=== PATIENT | male | born 1955 | race Caucasian/White ===

== ENCOUNTER 2018-05-14 08:21 | Emergency (ER) | payer MEDICARE ==
[2018-05-14 08:27] VITALS: BP 174/73
--- NOTE | 2018-05-14 09:37 | ER Document Report ---
ED Medical Screen (RME) - General Chief Complaint: Neck Problem Stated Complaint: MASS IN NECK Time Seen by Provider: 05/14/18 09:24 Mode of Arrival: Ambulatory Information source: Patient, Relative TRAVEL OUTSIDE OF THE U.S. 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 Has been lost to follow-up as a result of change in insurance status. He presents with his today for concern of worsening functioning increasing swelling along the right side of his head and systemic weakness. - Related Data Allergies/Adverse Reactions: No Known Allergies Allergy (Unverified 05/14/18 08:22) Past Medical History - Social History Chew tobacco use (# tins/day): No Frequency of alcohol use: None Drug Abuse: None Renal/ Medical History: Denies: Hx Peritoneal Dialysis Physical Exam - Vital signs Vitals: Temp Pulse Resp BP Pulse Ox 97.4 F 69 20 174/73 H 99 05/14/18 08:25 05/14/18 08:25 05/14/18 08:25 05/14/18 08:25 05/14/18 08:25 Course - Re-evaluation Re-evalutation: 05/14/18 11:52 I performed a rapid medical screening examination on this patient, believe she will require some further investigation and evaluation will defer further testing or disposition determination to another provider. 63-year-old male with head neck cancer worsening swelling along the right side of the head, will obtain soft tissue head and neck for delineation of mass. We will plan for this patient undergo further investigation however for his underlying oncologic issues. - Vital Signs Vital signs: Temp Pulse Resp BP Pulse Ox 97.4 F 69 20 174/73 H 99 05/14/18 08:25 05/14/18 08:25 05/14/18 08:25 05/14/18 08:25 05/14/18 08:25
[2018-05-14 10:05] LABS: ABSOLUTE BASOPHILS # (AUTO) 0.1 10^3/uL (0.0-0.2); ABSOLUTE EOSINOPHILS # (AUTO) 0.5 10^3/uL (0.0-0.6); ABSOLUTE MONOCYTES (AUTO) 0.6 10^3/uL (0.1-1.4); ABSOLUTE NEUT (AUTO) 6.1 10^3/uL (1.7-8.2); BASOPHILS % (AUTO) 1.2 % (0-2); EOSINOPHILS % (AUTO) 6.4 % (0-6); HEMATOCRIT 38.5 % (37.9-51.0); HEMOGLOBIN 13.3 g/dL (13.5-17.0); MEAN CORPUSCULAR HEMOGLOBIN 33.6 pg (27.0-33.4); MEAN CORPUSCULAR HGB CONC 34.7 g/dL (32.0-36.0); MEAN CORPUSCULAR VOLUME 97 fl (80-97); MONOCYTES % (AUTO) 6.9 % (3-13); PLATELET COUNT 422 10^3/uL (150-450); RED BLOOD COUNT 3.97 10^6/uL (4.35-5.55); RED CELL DISTRIBUTION WIDTH 12.7 % (11.5-14.0); SEGMENTED NEUTROPHILS % (AUTO) 73.5 % (42-78); TOTAL CELLS COUNTED % (AUTO) 100 %; WHITE BLOOD COUNT 8.3 10^3/uL (4.0-10.5)
[2018-05-14 10:31] LABS: ALANINE AMINOTRANSFERASE 34 U/L (21-72); ALKALINE PHOSPHATASE 124 U/L (38-126); ANION GAP 11 (5-19); ASPARTATE AMINO TRANSFERASE 28 U/L (17-59); BILIRUBIN,DIRECT 0.2 mg/dL (0.0-0.4); BILIRUBIN,TOTAL 0.3 mg/dL (0.2-1.3); BLOOD UREA NITROGEN 14 mg/dL (7-20); CALCIUM 9.9 mg/dL (8.4-10.2); CARBON DIOXIDE 28 mmol/L (22-30); CHLORIDE 96 mmol/L (98-107); GLUCOSE 94 mg/dL (75-110); POTASSIUM 5.3 mmol/L (3.6-5.0); SODIUM 134.8 mmol/L (137-145); TOTAL PROTEIN 7.1 g/dL (6.3-8.2)
--- NOTE | 2018-05-14 10:36 | RADIOLOGY REPORT (SQ) ---
EXAM DESCRIPTION: CHEST 2 VIEWS COMPLETED DATE/TIME: 05/14/2018 10:23 am REASON FOR STUDY: dyspnea COMPARISON: None. EXAM PARAMETERS: NUMBER OF VIEWS: two views TECHNIQUE: Digital Frontal and Lateral radiographic views of the chest acquired. RADIATION DOSE: NA LIMITATIONS: none FINDINGS: LUNGS AND PLEURA: No opacities, masses or pneumothorax. No pleural effusion. MEDIASTINUM AND HILAR STRUCTURES: No masses or contour abnormalities. HEART AND VASCULAR STRUCTURES: Heart normal size. No evidence for failure. BONES: No acute findings. HARDWARE: Left-sided permanent central line tip superior vena cava. Tracheostomy tube tip in the upp er trachea. OTHER: No other significant finding. IMPRESSION: NO ACUTE RADIOGRAPHIC FINDING IN THE CHEST. TECHNICAL DOCUMENTATION: JOB ID: [id number] [employer]- All Rights Reserved Reading location - IP/workstation name: [email or web address]
--- NOTE | 2018-05-14 11:25 | RADIOLOGY REPORT (SQ) ---
EXAM DESCRIPTION: CT SOFT TISSUE NECK COMBO COMPLETED DATE/TIME: 05/14/2018 11:04 am REASON FOR STUDY: large neck mass growing COMPARISON: None. TECHNIQUE: Pre and Post IV contrasted scanning from skull base through lung apices with review of hermelinda ne, soft tissue and lung windows. Reconstructed coronal and sagittal MPR images reviewed. All image s stored on PACS. All CT scanners at this facility use dose modulation, iterative reconstruction, and/or weight based d osing when appropriate to reduce radiation dose to as low as reasonably achievable (ALARA). [facility]: Dose Right [facility]: CareDose [facility]: Dose Right [facility]: Teradose 4D [facility]: Basic6 CONTRAST TYPE AND DOSE: contrast/concentration: Isovue 350.00 mg/ml; Total Contrast Delivered: 75.0 ml; Total Saline Delivered: 55.0 ml RENAL FUNCTION: Creatinine 0.7 RADIATION DOSE: CT Rad equipment meets quality standard of care and radiation dose reduction techniq ues were employed. CTDIvol: 10.2 - 12.1 mGy. DLP: 793 mGy-cm. . LIMITATIONS: None. FINDINGS: SKULL BASE: Inferior brain parenchyma unremarkable MAJOR SALIVARY GLANDS: In the deep lobe right parotid gland, 5 x 5 cm mass is present worrisome for p rimary parotid tumor. This displaces the carotid vessels medially. LYMPHADENOPATHY: No adenopathy. MUCOSAL MASSES OR ASYMMETRY: No mucosal masses or asymmetry. LARYNX/CORDS: Post tracheostomy. Abnormal supraglottic larynx with effacement of the right piriform recess and thickening of the rightward epiglottis and aryepiglottic fold worrisome for tumor. VASCULAR STRUCTURES: Heavily calcified carotid bifurcations without flow significant stenosis LUNG APICES: Obstructive lung disease BONES: Diffuse degenerative changes throughout the cervical spine THYROID: Normal size, 1 cm cyst right midpole thyroid PARANASAL SINUSES: Old left maxillary sinus antral window with chronic left maxillary sinus mucoperio steal thickening. OTHER: Tracheostomy tube tip in the upper trachea. Left permanent central line tip superior vena cav a IMPRESSION: 5 x 5 cm mass deep lobe right parotid gland worrisome for primary parotid tumor Abnormal supraglottic larynx worrisome for pharyngeal cancer Tracheostomy tube tip in the upper trachea in good positioning. TECHNICAL DOCUMENTATION: JOB ID: [id number] Quality ID # [id number]: Final reports with documentation of one or more dose reduction techniques (e.g., Au tomated exposure control, adjustment of the mA and/or kV according to patient size, use of iterative reconstruction technique) 2010 [employer]- All Rights Reserved Reading location - IP/workstation name: [email or web address]
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
== END 2018-05-14 12:49 | disposition home or self-care (01) ==
LOC: ER 08:21
DX: R22.1 Localized swelling, mass and lump, neck (principal); R53.1 Weakness; F17.210 Nicotine dependence, cigarettes, uncomplicated; Z59.0 Homelessness
CPT/HCPCS: 36415; 70492; 71046; 80053; 85025; 99284

== ENCOUNTER 2018-08-25 05:10 | Emergency (ER) | payer MEDICARE ==
[2018-08-25] MEDS ORDERED: TRANEXAMIC ACID INJ/PF 1,000 MG/10 ML SDV IV ONE (05:22)
--- NOTE | 2018-08-25 05:25 | ER Document Report ---
ED Medical Screen (RME) - General Stated Complaint: NECK PAIN Time Seen by Provider: 08/25/18 05:21 Mode of Arrival: Medic Information source: Patient, Emergency Med Personnel, [facility] Records Notes: 63-year-old male with hypertension, COPD, laryngeal cancer presents via EMS with massive bleeding from the external surface of the mass on the right lateral aspect of his neck. Patient does report that it has been oozing clear fluid for several days but he awoke this morning in a pool of blood. He is not currently undergoing any cancer treatment. I have greeted and performed a rapid initial assessment of this patient. A comprehensive ED assessment and evaluation of the patient, analysis of test results and completion of medical decision making process we will be contacted by additional ED providers. PHYSICAL EXAMINATION: Vital signs reviewed GENERAL: Disheveled, covered in blood, large neck mass no active bleeding LUNGS: No respiratory distress Musculoskeletal: Normal range of motion NEUROLOGICAL: Normal speech, normal gait. PSYCH: Normal mood, normal affect. SKIN: Warm, Dry, normal turgor, no rashes or lesions noted. TRAVEL OUTSIDE OF THE U.S. IN LAST 30 DAYS: No - HPI Onset: Just prior to arrival Onset/Duration: Sudden Quality of pain: Pressure, Throbbing Severity: Moderate Associated Symptoms: Cough (productive). denies: Drooling Exacerbated by: Denies Relieved by: Denies Similar symptoms previously: Yes Recently seen / treated by doctor: No - Related Data Smoking: Cigarettes Frequency of alcohol use: None Drug Abuse: None Allergies/Adverse Reactions: No Known Allergies Allergy (Unverified 05/14/18 08:22) Past Medical History Renal/ Medical History: Denies: Hx Peritoneal Dialysis
[2018-08-25 05:47] LABS: ABSOLUTE BASOPHILS # (AUTO) 0.1 10^3/uL (0.0-0.2); ABSOLUTE EOSINOPHILS # (AUTO) 0.5 10^3/uL (0.0-0.6); ABSOLUTE LYMPHOCYTES (AUTO) 1.2 10^3/uL (0.5-4.7); ABSOLUTE MONOCYTES (AUTO) 0.6 10^3/uL (0.1-1.4); ABSOLUTE NEUT (AUTO) 6.5 10^3/uL (1.7-8.2); BASOPHILS % (AUTO) 1.2 % (0-2); HEMOGLOBIN 12.5 g/dL (13.5-17.0); LYMPHOCYTES % (AUTO) 13.3 % (13-45); MEAN CORPUSCULAR HEMOGLOBIN 33.6 pg (27.0-33.4); MEAN CORPUSCULAR HGB CONC 34.9 g/dL (32.0-36.0); MEAN CORPUSCULAR VOLUME 97 fl (80-97); MONOCYTES % (AUTO) 6.9 % (3-13); PLATELET COUNT 487 10^3/uL (150-450); RED BLOOD COUNT 3.73 10^6/uL (4.35-5.55); RED CELL DISTRIBUTION WIDTH 12.7 % (11.5-14.0); SEGMENTED NEUTROPHILS % (AUTO) 72.6 % (42-78); TOTAL CELLS COUNTED % (AUTO) 100 %; WHITE BLOOD COUNT 8.9 10^3/uL (4.0-10.5)
[2018-08-25 06:03] LABS: INTERNATIONAL RATION (INR) 0.92; PROTHROMBIN TIME 12.8 SEC (11.4-15.4)
--- NOTE | 2018-08-25 06:59 | ER Document Report ---
ED General - General Chief Complaint: Neck Problem Stated Complaint: NECK PAIN Time Seen by Provider: 08/25/18 05:21 Mode of Arrival: Medic Notes: 63-year-old's male presents the emergency department with complaints of bleeding from a mass on the right side of his neck. Patient states that he moved [place]. Patient states that he was diagnosed with cancer while in [place]. He had a trach PEG placed while in [place]. He had a week of continuous chemotherapy and was told he needed 30 radiation treatments. Patient did 5 of the radiation treatments and then moved to [place]. He is not returned to [place] for any further treatment. Patient states that he is homeless and does not have insurance. He was seen in the emergency department in May for the neck mass. He has a social service consulted and was referred to a primary care physician and Dr. Karl bond. Patient states that he is not followed up with anyone. TRAVEL OUTSIDE OF THE [place].S. IN LAST 30 DAYS: No - HPI Onset: Just prior to arrival Onset/Duration: Sudden Quality of pain: No pain Severity: None Pain Level: Denies Associated symptoms: None Exacerbated by: Denies Relieved by: Denies Similar symptoms previously: No Recently seen / treated by doctor: No - Related Data Allergies/Adverse Reactions: No Known Allergies Allergy (Verified 08/25/18 05:45) Past Medical History - General Information source: Patient, Emergency Med Personnel, [facility] Records - Social History Smoking Status: Current Every Day Smoker Frequency of alcohol use: None Drug Abuse: None Family History: Reviewed & Not Pertinent Renal/ Medical History: Denies: Hx Peritoneal Dialysis Review of Systems - Review of Systems Constitutional: See HPI EENT: Other - neck mass bleeding Cardiovascular: No symptoms reported Respiratory: No symptoms reported Gastrointestinal: No symptoms reported Genitourinary: No symptoms reported Male Genitourinary: No symptoms reported Musculoskeletal: No symptoms reported Skin: No symptoms reported Hematologic/Lymphatic: No symptoms reported Neurological/Psychological: No symptoms reported -: Yes All other systems reviewed and negative Physical Exam - Vital signs Vitals: Resp Pulse Ox 13 96 08/25/18 05:18 08/25/18 05:18 - Notes Notes: PHYSICAL EXAMINATION: GENERAL: Well-appearing, well-nourished and in no acute distress. HEAD: Atraumatic, normocephalic. EYES: Pupils equal round and reactive to light, extraocular movements intact, sclera anicteric, conjunctiva are normal. ENT: Nares patent, oropharynx clear without exudates. Moist mucous membranes. Trach in place. 7cm right sided hard neck mass. NECK: Normal range of motion, supple without lymphadenopathy LUNGS: Breath sounds clear to auscultation bilaterally and equal. No wheezes rales or rhonchi. HEART: Regular rate and rhythm without murmurs ABDOMEN: Soft, nontender, nondistended abdomen. No guarding, no rebound. No masses appreciated. Musculoskeletal: Normal range of motion, no pitting or edema. No cyanosis. NEUROLOGICAL: Cranial nerves grossly intact. Normal speech, normal gait. Normal sensory, motor exams PSYCH: Normal mood, normal affect. SKIN: Warm, Dry, normal turgor, no rashes or lesions noted. Course - Re-evaluation Re-evalutation: 08/25/18 09:43 Labs and imaging done. Hemoglobin is stable. Repeat CT of the neck was done. It shows progression of the R parotid tumor mass and a new left malignant adenopathy. I contacted social media marketing specialist to help the patient with insurance purposes. I spoke with Dr. Wall, the oncologist construction superintendent. She said she be more than happy to see him in the office regardless of insurance status. 08/25/18 13:20 print binding and finishing worker saw the patient. She contacted the patient's . She is going to arrange for a home health referral to help with trach care. She is also trying to set up transport to get the patient from his house to Dr. Wall's office. No further bleeding to the mass. I will discharge patient home. - Vital Signs Vital signs: Temp Pulse Resp BP Pulse Ox 18 171/89 H 100 08/25/18 12:14 08/25/18 12:14 08/25/18 12:14 - Laboratory Result Diagrams: 08/25/18 05:23 08/25/18 07:25 Laboratory results interpreted by me: 08/25/18 08/25/18 05:23 07:25 RBC 3.73 L Hgb 12.5 L Hct 36.0 L MCH 33.6 H Plt Count 487 H Sodium 132.8 L AST 14 L Total Protein 6.1 L Discharge - Discharge Clinical Impression: Parotid mass Condition: Stable Instructions: Growth or Mass, Pending Workup ([facility]) Additional Instructions: Follow-up with Dr. Landers this week. Contact the psychiatric social worker supervisor if you're having problems setting up transport to her office. Return to the emergency department for worsening bleeding, fever, chills, difficulty breathing. Referrals: JONAH WALL MD [ACTIVE STAFF] - Follow up as needed
[2018-08-25 07:58] LABS: ALBUMIN 3.6 g/dL (3.5-5.0); ALKALINE PHOSPHATASE 126 U/L (38-126); ANION GAP 10 (5-19); ASPARTATE AMINO TRANSFERASE 14 U/L (17-59); BILIRUBIN,DIRECT 0.3 mg/dL (0.0-0.4); BILIRUBIN,TOTAL 0.3 mg/dL (0.2-1.3); BLOOD UREA NITROGEN 16 mg/dL (7-20); CALCIUM 8.8 mg/dL (8.4-10.2); CARBON DIOXIDE 24 mmol/L (22-30); CHLORIDE 99 mmol/L (98-107); GLUCOSE 109 mg/dL (75-110); POTASSIUM 4.4 mmol/L (3.6-5.0); SODIUM 132.8 mmol/L (137-145); TOTAL PROTEIN 6.1 g/dL (6.3-8.2)
[2018-08-25 08:07] LABS: ALANINE AMINOTRANSFERASE 30 U/L (21-72)
--- NOTE | 2018-08-25 09:23 | RADIOLOGY REPORT (SQ) ---
EXAM DESCRIPTION: CT SOFT TISSUE NECK WITH COMPLETED DATE/TIME: 08/25/2018 8:59 am REASON FOR STUDY: neck mass COMPARISON: 05/14/2018 CT soft tissue neck TECHNIQUE: Post IV contrasted scanning from skull base through lung apices with review of bone, soft tissue and lung windows. Reconstructed coronal and sagittal MPR images reviewed. All images stored on PACS. All CT scanners at this facility use dose modulation, iterative reconstruction, and/or weight based d osing when appropriate to reduce radiation dose to as low as reasonably achievable (ALARA). [facility]: Dose Right [facility]: CareDose [facility]: Dose Right [facility]: Teradose 4D [facility]: [employer] CONTRAST TYPE AND DOSE: contrast/concentration: Isovue 350.00 mg/ml; Total Contrast Delivered: 75.0 ml; Total Saline Delivered: 45.0 ml RENAL FUNCTION: Creatinine 0.7 RADIATION DOSE: CT Rad equipment meets quality standard of care and radiation dose reduction techniq ues were employed. CTDIvol: 16.5 mGy. DLP: 545 mGy-cm. . LIMITATIONS: None. FINDINGS: SKULL BASE: Inferior brain parenchyma in the field of view unremarkable MAJOR SALIVARY GLANDS: A huge tumor mass replaces the right parotid gland, now 7 cm transverse by 7 c m AP x 10 cm craniocaudad (was 5 x 4.8 x 5.[address] soft tissue neck 05/14/2018). Along the of large right parotid tumor, there is now a tumor nodule extending along the deep lobe rig ht parotid into the right carotid space and parapharyngeal space. This nodule measures 2.4 cm transv erse by 2.3 cm AP x 2.7 cm craniocaudad, best shown on axial image 30 and coronal image 55. There is encasement of the right carotid bifurcation by tumor. Remainder of the major salivary glands are otherwise grossly unremarkable. LYMPHADENOPATHY: New malignant left jugulodigastric lymph node, 2.8 x 2 cm on axial image 46/115. Ne w left level 3 lymph node 1.8 x 1.2 cm on axial image 53/115. MUCOSAL MASSES OR ASYMMETRY: No mucosal masses or asymmetry. LARYNX/CORDS: Medial deviation of the left arytenoid cartilage, question left-sided vocal cord paraly sis VASCULAR STRUCTURES: The major vessels are patent. Heavily calcified carotid bifurcations without fl ow significant stenosis LUNG APICES: Clear. BONES: Degenerative disc changes cervical spine THYROID: Normal size. No masses. PARANASAL SINUSES: Clear. OTHER: Tracheostomy tube tip in the upper trachea, in good positioning. Left permanent central line tip superior vena cava. 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 New contralateral left neck malignant adenopathy Suspect left vocal cord paralysis TECHNICAL DOCUMENTATION: JOB ID: [id number] Quality ID # [id number]: Final reports with documentation of one or more dose reduction techniques (e.g., Au tomated exposure control, adjustment of the mA and/or kV according to patient size, use of iterative reconstruction technique) 2010 [employer]- All Rights Reserved Reading location - IP/workstation name: [email or web address]
[2018-08-25] MEDS ORDERED: CLONIDINE HCL 0.1 MG TABLET PO ONE (12:21)
[2018-08-25] MEDS ORDERED: ACETAMINOPHEN 325 MG TABLET PO ONE (12:21)
[2018-08-25 14:23] VITALS: BP 159/86
== END 2018-08-25 14:35 | disposition home or self-care (01) ==
LOC: ER 05:10
DX: D11.0 Benign neoplasm of parotid gland (principal); M54.2 Cervicalgia; F17.200 Nicotine dependence, unspecified, uncomplicated
CPT/HCPCS: 99284; 96374; 86900; 86901; 36415; 86850; 85025; 85610; 80053; 70491; A9270 ×2; J3490

== ENCOUNTER 2018-08-29 19:58 | Emergency (ER) | payer MEDICARE ==
[2018-08-29] MEDS ORDERED: LIDOCAINE 4%/TETRACAINE 0.5%/EPI 0.18% 5 ML TOPICAL SOLN TOP ONE (20:37)
[2018-08-29 20:53] LABS: ABSOLUTE BASOPHILS # (AUTO) 0.1 10^3/uL (0.0-0.2); ABSOLUTE EOSINOPHILS # (AUTO) 0.3 10^3/uL (0.0-0.6); ABSOLUTE LYMPHOCYTES (AUTO) 1.3 10^3/uL (0.5-4.7); ABSOLUTE MONOCYTES (AUTO) 0.5 10^3/uL (0.1-1.4); ABSOLUTE NEUT (AUTO) 5.2 10^3/uL (1.7-8.2); BASOPHILS % (AUTO) 1.1 % (0-2); EOSINOPHILS % (AUTO) 4.2 % (0-6); HEMATOCRIT 33.6 % (37.9-51.0); HEMOGLOBIN 11.8 g/dL (13.5-17.0); LYMPHOCYTES % (AUTO) 17.1 % (13-45); MEAN CORPUSCULAR HEMOGLOBIN 33.8 pg (27.0-33.4); MEAN CORPUSCULAR HGB CONC 35.1 g/dL (32.0-36.0); MEAN CORPUSCULAR VOLUME 96 fl (80-97); MONOCYTES % (AUTO) 7.3 % (3-13); PLATELET COUNT 525 10^3/uL (150-450); RED BLOOD COUNT 3.49 10^6/uL (4.35-5.55); RED CELL DISTRIBUTION WIDTH 12.7 % (11.5-14.0); SEGMENTED NEUTROPHILS % (AUTO) 70.3 % (42-78); TOTAL CELLS COUNTED % (AUTO) 100 %; WHITE BLOOD COUNT 7.4 10^3/uL (4.0-10.5)
[2018-08-29 21:06] LABS: ALANINE AMINOTRANSFERASE 14 U/L (21-72); ALBUMIN 4.4 g/dL (3.5-5.0); ALKALINE PHOSPHATASE 159 U/L (38-126); ANION GAP 11 (5-19); ASPARTATE AMINO TRANSFERASE 17 U/L (17-59); BILIRUBIN,DIRECT 0.5 mg/dL (0.0-0.4); BILIRUBIN,TOTAL 0.5 mg/dL (0.2-1.3); BLOOD UREA NITROGEN 19 mg/dL (7-20); CALCIUM 9.7 mg/dL (8.4-10.2); CARBON DIOXIDE 27 mmol/L (22-30); CHLORIDE 90 mmol/L (98-107); GLUCOSE 99 mg/dL (75-110); INTERNATIONAL RATION (INR) 0.92; POTASSIUM 4.9 mmol/L (3.6-5.0); PROTHROMBIN TIME 12.8 SEC (11.4-15.4); TOTAL PROTEIN 7.2 g/dL (6.3-8.2)
[2018-08-29] MEDS ORDERED: ACETAMINOPHEN 325 MG TABLET PO ONE (21:39)
--- NOTE | 2018-08-29 22:42 | ER Document Report ---
ED General - General Chief Complaint: Other Stated Complaint: TUMOR BLEEDING Time Seen by Provider: 08/29/18 20:37 Primary Care Provider: [facility] [Outside] - Follow up in 3-5 days TRAVEL OUTSIDE OF THE U.S. IN LAST 30 DAYS: No - HPI Patient complains to provider of: Bleeding Onset: Other - 63-year-old man with head and neck cancer who presents for a bleeding tumor out of the side of his neck. Notes that this is happened once before. Nothing is made it better or worse. Previously it stopped on its own with some gentle pressure. Does not take any blood thinning medications has not seen anybody for this since moving here from [place]. - Related Data Allergies/Adverse Reactions: No Known Allergies Allergy (Verified 08/25/18 05:45) Past Medical History - General Information source: Patient - Social History Smoking Status: Current Every Day Smoker Smoking Education Provided: Yes Family History: Reviewed & Not Pertinent Renal/ Medical History: Denies: Hx Peritoneal Dialysis Review of Systems - Review of Systems -: Yes All other systems reviewed and negative Physical Exam - Vital signs Vitals: Temp 97.8 F 08/29/18 19:59 - General General appearance: Alert In distress: Mild - HEENT Head: Normocephalic Eyes: Normal Conjunctiva: Normal Cornea: Normal Extraocular movements intact: Yes Eyelashes: Normal Neck: Other - There is marked swelling over the lateral aspect just inferior to the angle of the mandible with an erythematous taut lesion which is ulcerated and actively oozing bright red blood in a nonpulsatile fashion - Respiratory Respiratory status: No respiratory distress Chest status: Nontender Breath sounds: Normal Chest palpation: Normal - Cardiovascular Rhythm: Regular Heart sounds: Normal auscultation Murmur: No - Abdominal Inspection: Normal Distension: No distension Bowel sounds: Normal Tenderness: Nontender Organomegaly: No organomegaly - Back Back: Normal, Nontender - Extremities General upper extremity: Normal inspection, Nontender, Normal color, Normal ROM, Normal temperature General lower extremity: Normal inspection, Nontender, Normal color, Normal ROM, Normal temperature, Normal weight bearing. No: Roel's sign - Neurological Neuro grossly intact: Yes Cognition: Normal Orientation: AAOx4 [place] Coma Scale Eye Opening: Spontaneous [place] Coma Scale Verbal: Oriented [place] Coma Scale Motor: Obeys Commands Isabella Coma Scale Total: 15 Speech: Normal Motor strength normal: LUE, RUE, LLE, RLE Sensory: Normal - Psychological Associated symptoms: Normal affect, Normal mood Course - Re-evaluation Re-evalutation: 08/30/18 01:22 This 63-year-old man with a history of head and neck cancer presents for bleeding from a tumor on his neck. Upon removal of the dressing there is an obvious ulcerated area which is actively bleeding. Current plan is to apply pressure to this spot directly. Following direct pressure for approximately 5 minutes bleeding was stopped. This patient blood for several hours prior to my evaluation of him as such we will obtain a CBC and CMP just in case this patient needs transfusions. While awaiting this result patient did not have any return of bleeding. His CBC was stable. He remained well-appearing his tracheostomy was patent he did not have any issues otherwise. - Vital Signs Vital signs: Temp Pulse Resp BP Pulse Ox 97.4 F 17 140/69 H 98 08/30/18 00:00 08/30/18 00:01 08/30/18 00:00 08/30/18 00:01 - Laboratory Result Diagrams: 08/29/18 20:15 08/29/18 20:15 Laboratory results interpreted by me: 08/29/18 08/29/18 20:15 20:15 RBC 3.49 L Hgb 11.8 L Hct 33.6 L MCH 33.8 H Plt Count 525 H Sodium 128.0 L Chloride 90 L Direct Bilirubin 0.5 H ALT 14 L Alkaline Phosphatase 159 H Discharge - Discharge Clinical Impression: Bleeding, Neck mass Condition: Good Disposition: HOME, SELF-CARE Additional Instructions: You were seen today in the emergency department from the bleeding from your neck wound. You had an evaluation including blood tests and a physical exam. If you have a return of bleeding he should place a gauze over top of the area and place 1 finger over the area where there is bleeding. You need to schedule appointment with a physician this week so that they can arminda ck this wound. Keep this wound covered with a bandage, change the bandage daily at least. Return in case of worsening bleeding or inability to stop the bleeding. Forms: Smoking Cessation Education Referrals: [facility] [Outside] - Follow up in 3-5 days
[2018-08-30 00:23] VITALS: BP 140/69
== END 2018-08-30 00:15 | disposition home or self-care (01) ==
LOC: ER 19:58
DX: R58 Hemorrhage, not elsewhere classified (principal); C76.0 Malignant neoplasm of head, face and neck; C79.89 Secondary malignant neoplasm of other specified sites; F17.200 Nicotine dependence, unspecified, uncomplicated
CPT/HCPCS: 99283; 86900; 86901; 36415; 86850; 85025; 85610; 80053; A9270; J3490

== ENCOUNTER → 2018-09-05 | Outpatient (CLI) | payer MEDICARE ==
--- NOTE | 2018-09-05 11:47 | RADIOLOGY REPORT (SQ) ---
EXAM DESCRIPTION: CT CHEST WITH COMPLETED DATE/TIME: 09/05/2018 11:25 am REASON FOR STUDY: MALIGNANT NEOPLASM OF HEAD, FACE AND NECK (C76.0) C76.0 MALIGNANT NEOPLASM OF HEA D, FACE AND NECK COMPARISON: Chest x-ray dated 05/14/2018 TECHNIQUE: CT scan of the chest performed using helical scanning technique with dynamic intravenous contrast injection. Images reviewed with lung, soft tissue and bone windows. Reconstructed coronal and sagittal MPR and MIP images reviewed. All images stored on PACS. All CT scanners at this facility use dose modulation, iterative reconstruction, and/or weight based d osing when appropriate to reduce radiation dose to as low as reasonably achievable (ALARA). [facility]: Dose Right [facility]: CareDose [facility]: Dose Right [facility]: Teradose 4D [facility]: [employer] CONTRAST TYPE AND DOSE: contrast/concentration: Isovue 350.00 mg/ml; Total Contrast Delivered: 80.0 ml; Total Saline Delivered: 49.0 ml RENAL FUNCTION: BUN 19, creatinine 0.89 RADIATION DOSE: CT Rad equipment meets quality standard of care and radiation dose reduction techniq ues were employed. CTDIvol: 5.8 mGy. DLP: 253 mGy-cm. . LIMITATIONS: None. FINDINGS: LUNGS AND PLEURA: Tracheostomy tube is in place. Mild bilateral emphysematous changes wit h simplification of the lung architecture. There are bilateral pulmonary nodules consistent with met astatic disease. The largest is in the right upper lobe and measures 1.4 cm. HILAR AND MEDIASTINAL STRUCTURES: No identified masses or abnormal nodes. HEART AND VASCULAR STRUCTURES: No aneurysm or dissection. No central pulmonary emboli. No pericardi al effusion. HARDWARE: None in the chest. UPPER ABDOMEN: No significant findings. Limited exam. THYROID AND OTHER SOFT TISSUES: No masses. No adenopathy. BONES: No significant finding. OTHER: No other significant finding. IMPRESSION: Multiple bilateral pulmonary nodules consistent with metastatic disease. The largest is in the right upper lobe and measures 1.4 cm. TECHNICAL DOCUMENTATION: JOB ID: [id number] Quality ID # [id number]: Final reports with documentation of one or more dose reduction techniques (e.g., Au tomated exposure control, adjustment of the mA and/or kV according to patient size, use of iterative reconstruction technique) 2010 [email or web address]- All Rights Reserved Reading location - IP[facility]workstation name: [email or web address]
== END ==
LOC: RAD 10:29
PROVIDERS: ATTEND Internal Medicine Hematology & Oncology
DX: C76.0 Malignant neoplasm of head, face and neck (principal)
CPT/HCPCS: 71260

== ENCOUNTER 2018-09-12 09:50 | Emergency (ER) | payer MEDICARE ==
[2018-09-12] MEDS ORDERED: LIDOCAINE 1%/EPINEPHRINE INJ 20 ML VIAL ONE (09:55)
--- NOTE | 2018-09-12 10:14 | ER Document Report ---
ED General - General Stated Complaint: BLEEDING ABSCESS Time Seen by Provider: 09/12/18 10:09 Primary Care Provider: JONAH LARES MD [Primary Care Provider] - Follow up as needed TRAVEL OUTSIDE OF THE U.S. IN LAST 30 DAYS: No - HPI Notes: Patient is a 63-year-old male that presents to the emergency department for chief complaint of bleeding tumor. Patient has a malignant right neck tumor and was in the hospital establishing with radiation oncology. When the oncologist took off his dressing the tumor began to bleed. Rapid response team was called and patient was transferred to the emergency room. Patient denies any other symptoms. He states he has bleeding from the area not infrequently. He did not have any reading that who is aware of this morning until the dressing was taken off. He had previously had care in [place] and just recently moved to the area. He has not established with oncology or primary care. He denies having any radiation to this area today. He denies any history of chemotherapy in the past. Patient does have a tracheostomy tube and states that he has been breathing normally. He denies any bleeding from the tracheostomy site. Past Medical History: Malignant neck tumor Past Surgical History: Tracheostomy Social History: Reviewed in chart Family History: Reviewed and noncontributory for presenting illness Allergies: Reviewed, see documented allergy list. REVIEW OF SYSTEMS: CONSTITUTIONAL : No fever No chills No diaphoresis No recent illness EENT: No vision changes No congestion No sore throat CARDIOVASCULAR: No chest pain No palpitations RESPIRATORY: No shortness of breath No cough No difficulty breathing GASTROINTESTINAL: No abdominal pain No nausea No vomiting No diarrhea GENITOURINARY: No dysuria No hematuria No difficulty urinating MUSCULOSKELETAL: No back pain No leg pain No arm pain SKIN: No rashes Bleeding from tumor LYMPHATIC: No swollen, enlarged glands. NEUROLOGICAL: No lightheadedness No headache No weakness No paresthesias PSYCHIATRIC: No anxiety No depression PHYSICAL EXAMINATION: Vital signs reviewed, nursing noted reviewed. GENERAL: Well-appearing, well-nourished and in no acute distress. HEAD: Atraumatic, normocephalic. EYES: Eyes appear normal, extraocular movements intact, sclera anicteric, conjunctiva are normal. ENT: nares patent, oropharynx clear without exudates. Moist mucous membranes. NECK: Tracheostomy clean, dry and intact with no active bleeding, large right lateral neck mass with superficial vessel pulsatile hemorrhage. LUNGS: Breath sounds clear to auscultation bilaterally and equal. No wheezes rales or rhonchi. HEART: Regular rate and rhythm without murmurs ABDOMEN: Soft, nontender, normoactive bowel sounds. No rebound, guarding, or rigidity. No masses appreciated. EXTREMITIES: Nontender, good range of motion, no pitting or edema. NEUROLOGICAL: No focal neurological deficits. Moves all extremities spontaneously Motor and sensory grossly intact on exam. PSYCH: Normal mood, normal affect. SKIN: Warm, Dry, normal turgor, right lateral neck mass with excoriations and active bleeding - Related Data Allergies/Adverse Reactions: No Known Allergies Allergy (Verified 08/25/18 05:45) Past Medical History - Social History Smoking Status: Unknown if Ever Smoked Family History: Reviewed & Not Pertinent - Past Medical History Cardiac Medical History: Reports: Hx Hypertension Renal/ Medical History: Denies: Hx Peritoneal Dialysis Past Surgical History: Reports: Hx Abdominal Surgery Course - Re-evaluation Re-evalutation: 09/12/18 10:11 Vitals reviewed. Nursing notes reviewed. Patient is a large excoriated mass on the left side of his neck. There is a small superficial vessel with pulsatile bleeding. The bleeding was controlled using pursestring suturing and cauterization. Surgifoam was placed over the area because of the excoriations to prevent any further bleeding. Patient is otherwise asymptomatic. His vital signs are stable. He will be discharged back to radiation oncology for further management. Procedures - Laceration/Wound Repair Right Neck Time completed: 10:12 Wound length (cm): 5.0 Wound's Depth, Shape: Other - Superficial vessel Anesthetic type: 1% Lidocaine w/epi Volume Anesthetic (mLs): 2 Wound Repaired With: Sutures Number of Sutures: 1 Notes: 09/12/18 10:13 Right lateral neck mass with superficial vascular bleeding. Area anesthetized using 2 mL of local infiltration of lidocaine with epinephrine with no hemostasis. Good anesthesia was achieved. Direct cauterization used with electrocautery pen with no hemostasis. 4-[address] single pursestring suture, this did achieve hemostasis. Surgifoam placed with bulky dressing over top. Patient tolerated well with no immediate complications Discharge - Discharge Clinical Impression: Bleeding from wound Condition: Stable Disposition: HOME, SELF-CARE Additional Instructions: Remove the dressing and have the stitch removed in 2-3 days by primary care doctor or oncology. Return to the emergency room for any repeat bleeding that is not controlled by holding direct pressure on the wound Referrals: JONAH LARES MD [Primary Care Provider] - Follow up as needed
[2018-09-12 11:23] VITALS: BP 144/76
== END 2018-09-12 10:35 | disposition home or self-care (01) ==
LOC: ER 09:50
DX: S10.91XA Abrasion of unspecified part of neck, initial encounter (principal); X58.XXXA Exposure to other specified factors, initial encounter; C76.0 Malignant neoplasm of head, face and neck; I10 Essential (primary) hypertension; Z93.0 Tracheostomy status
CPT/HCPCS: 99283; 12002; J3490

== ENCOUNTER 2018-09-15 14:52 | Emergency (ER) | payer MEDICARE ==
[2018-09-15] MEDS ORDERED: LIDOCAINE 1%/EPINEPHRINE INJ 20 ML VIAL INJ ONE (15:27)
--- NOTE | 2018-09-15 15:38 | ER Document Report ---
ED General - General Chief Complaint: Other Stated Complaint: POSIBLE HEMORRHAGE Time Seen by Provider: 09/15/18 15:11 TRAVEL OUTSIDE OF THE U.S. IN LAST 30 DAYS: No - HPI Notes: Patient is a 63-year-old male that presents to the emergency department for chief complaint of bleeding neck mass. Patient has a large mass on the right side of his neck that has been having intermittent hemorrhaging. He was seen in the emergency room last week and had a suture placed by myself. Patient states he is not sure if anyone removed to the suture. He had some bleeding in the area last night and EMS was able to get hemostasis at his house. Patient called EMS again today because he was unable to get the bleeding stopped. Patient is a very poor historian. He has seen radiation oncology on Saturday. He states he has an appointment with someone coming up regarding his neck mass but he is not sure who or what specialty. There is no family present this time to provide further information. Past Medical History: Right neck mass Past Surgical History: Reviewed in chart Social History: Reviewed in chart Family History: Reviewed and noncontributory for presenting illness Allergies: Reviewed, see documented allergy list. REVIEW OF SYSTEMS: CONSTITUTIONAL : No fever No chills No diaphoresis No recent illness EENT: No vision changes No congestion No sore throat CARDIOVASCULAR: No chest pain No palpitations RESPIRATORY: No shortness of breath No cough No difficulty breathing GASTROINTESTINAL: No abdominal pain No nausea No vomiting No diarrhea GENITOURINARY: No dysuria No hematuria No difficulty urinating MUSCULOSKELETAL: No back pain No leg pain No arm pain SKIN: No rashes bleeding neck tumor LYMPHATIC: No swollen, enlarged glands. NEUROLOGICAL: No lightheadedness No headache No weakness No paresthesias PSYCHIATRIC: No anxiety No depression PHYSICAL EXAMINATION: Vital signs reviewed, nursing noted reviewed. GENERAL: Well-appearing, well-nourished and in no acute distress. HEAD: Atraumatic, normocephalic. EYES: Eyes appear normal, extraocular movements intact, sclera anicteric, conjunctiva are normal. ENT: nares patent, oropharynx clear without exudates. Moist mucous membranes. NECK: Tracheostomy clean, dry, intact normal range of motion, supple without lymphadenopathy LUNGS: Breath sounds mild end expiratory wheezing to auscultation bilaterally and equal. HEART: Regular rate and rhythm without murmurs ABDOMEN: Soft, nontender, normoactive bowel sounds. No rebound, guarding, or rigidity. No masses appreciated. EXTREMITIES: Nontender, good range of motion, no pitting or edema. NEUROLOGICAL: No focal neurological deficits. Moves all extremities spontaneously Motor and sensory grossly intact on exam. PSYCH: Normal mood, normal affect. SKIN: Warm, Dry, normal turgor. Excoriated and ulcerating right lateral neck mass with a small superficial vessel bleed that is nonpulsatile. - Related Data Allergies/Adverse Reactions: No Known Allergies Allergy (Verified 08/25/18 05:45) Past Medical History - Social History Smoking Status: Current Every Day Smoker Family History: Reviewed & Not Pertinent - Past Medical History Cardiac Medical History: Reports: Hx Hypertension Renal/ Medical History: Denies: Hx Peritoneal Dialysis Past Surgical History: Reports: Hx Abdominal Surgery Physical Exam - Vital signs Vitals: Resp 15 09/15/18 15:07 Course - Re-evaluation Re-evalutation: 09/15/18 15:51 Vitals reviewed. Nursing notes reviewed. Patient is a very poor historian however he is oriented. He is in no acute distress. He does have a small superficial vessel that is different from the area that was sutured on Saturday. There is no suture present in his neck mass. Patient was not sure who his doctors were. He stated he had an appointment with somebody on Saturday. I discussed his care with Dr. Floyd, ENT regarding patient's mass. He states patient would likely need head and neck surgery at 1 of the larger tertiary centers and this was not a mass he would necessarily manage however he would need more information which I cannot provide because of patient's inability to provide a history. I then discussed his care with Dr. Wall who has seen the patient in the past and states she is the one he has an appointment with on 09/17/18. She states she had recommended radiation oncology but was unsure of the recommendations. She believes radiation will likely improve his recurrent bleeding. Patient had told her that he did not wish to become aggressive with therapy and that the radiation was more of a palliative treatment. 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 Lab work will be obtained today for evaluate for anemia, thrombocytopenia and clotting disorder because of his recurrence of bleeding over the past few days. 09/15/18 16:21 Suture placed in bleeding superficial vessel with good hemostasis achieved, see procedure note. 09/15/18 16:26 Patient's lab work shows anemia at 9.7. He has normal platelet count. Patient has a normal PT and INR with only slight elevation of PTT. He has no bleeding currently. Patient is otherwise hemodynamically stable and not requiring blood transfusion. Lab testing also shows hyponatremia at 128 which is likely chronic in nature for him. Chart review shows his last sodium on record was 128 as well last year. He was advised to get his sodium and hemoglobin rechecked in the next few days. He has an appointment with oncology in 2 days which he will keep. Patient will return for any continued bleeding of his mass or new concerning symptoms. He is stable at discharge. Laboratory 09/15/18 09/15/18 09/15/18 15:00 15:00 15:00 WBC 7.0 RBC 2.95 L Hgb 9.7 L Hct 28.0 L MCV 95 MCH 33.0 MCHC 34.8 RDW 12.4 Plt Count 423 Seg Neutrophils % 74.3 Lymphocytes % 12.2 L Monocytes % 8.2 Eosinophils % 4.3 Basophils % 1.0 Absolute Neutrophils 5.2 Absolute Lymphocytes 0.9 Absolute Monocytes 0.6 Absolute Eosinophils 0.3 Absolute Basophils 0.1 PT 13.0 INR 0.94 APTT 36.3 H Sodium 128.6 L Potassium 4.7 Chloride 92 L Carbon Dioxide 28 Anion Gap 9 BUN 13 Creatinine 0.64 Est GFR ( Amer) > 60 Est GFR (Non-Af Amer) > 60 Glucose 109 Calcium 9.1 - Vital Signs Vital signs: Temp Pulse Resp BP Pulse Ox 97.8 F 62 18 100 09/15/18 15:24 09/15/18 15:24 09/15/18 15:24 09/15/18 15:24 - Laboratory Result Diagrams: 09/15/18 15:00 09/15/18 15:00 Laboratory results interpreted by me: 09/15/18 09/15/18 09/15/18 15:00 15:00 15:00 RBC 2.95 L Hgb 9.7 L Hct 28.0 L Lymphocytes % 12.2 L APTT 36.3 H Sodium 128.6 L Chloride 92 L Procedures - Laceration/Wound Repair Neck Time completed: 16:19 Wound length (cm): 0.5 Wound's Depth, Shape: Other - Superficial bleeding vessel with excoriated tissue surrounding Anesthetic type: 1% Lidocaine w/epi Volume Anesthetic (mLs): 2 Wound Repaired With: Sutures Suture Size/Type: 5:0, Vicryl Number of Sutures: 1 - Figure 8 stitch Notes: 09/15/18 16:20 2 mL lidocaine with epinephrine local infiltration of her superficial bleeding vessel on right lateral neck mass. Good anesthesia achieved and some hemostasis achieved with epinephrine. 5-0 Vicryl [id number] stitch placed with complete resolution of superficial vessel bleeding. Surrounding friable tissue bleeding continued and Surgifoam was placed with compressive dressing for complete hemostasis. Patient tolerated well with no immediate complications Discharge - Discharge Clinical Impression: Bleeding from wound, Hyponatremia Anemia Qualifiers: Anemia type: unspecified type Qualified Code(s): D64.9 - Anemia, unspecified Condition: Stable Disposition: HOME, SELF-CARE Instructions: Dressing Instructions for Open Wounds ([facility]), Hyponatremia ([facility]), Anemia ([facility]) Additional Instructions: Please return to the emergency department if you have any worsening, or concern of your symptoms. Please return to the emergency department if you develop chest pain, difficulty breathing, severe abdominal pain, or ongoing vomiting. Please follow-up with your primary care physician in 2-3 days and any other recommended physicians. If prescribed, take all medications as directed. If you have any questions or concerns do not hesitate to return the emergency department for evaluation. Your hemoglobin today was 9.7, this is low and if you continue to have bleeding from your neck mass you may require blood transfusion in the future. You do not require blood transfusion today. You need to have your hemoglobin rechecked in the next few days. Return to the emergency room if you have any continued bleeding of the mass on the right side of her neck. your sodium today was low. It has been low on previous testing at this hospital but should be rechecked in the next few days as an outpatient. Keep your appointment on 09/17/[address] Wall Referrals: JONAH WALL MD [ACTIVE STAFF] - Follow up in 3-5 days
[2018-09-15 15:57] LABS: ABSOLUTE BASOPHILS # (AUTO) 0.1 10^3/uL (0.0-0.2); ABSOLUTE EOSINOPHILS # (AUTO) 0.3 10^3/uL (0.0-0.6); ABSOLUTE LYMPHOCYTES (AUTO) 0.9 10^3/uL (0.5-4.7); ABSOLUTE MONOCYTES (AUTO) 0.6 10^3/uL (0.1-1.4); ABSOLUTE NEUT (AUTO) 5.2 10^3/uL (1.7-8.2); EOSINOPHILS % (AUTO) 4.3 % (0-6); HEMOGLOBIN 9.7 g/dL (13.5-17.0); LYMPHOCYTES % (AUTO) 12.2 % (13-45); MEAN CORPUSCULAR HGB CONC 34.8 g/dL (32.0-36.0); MEAN CORPUSCULAR VOLUME 95 fl (80-97); MONOCYTES % (AUTO) 8.2 % (3-13); PLATELET COUNT 423 10^3/uL (150-450); RED BLOOD COUNT 2.95 10^6/uL (4.35-5.55); RED CELL DISTRIBUTION WIDTH 12.4 % (11.5-14.0); SEGMENTED NEUTROPHILS % (AUTO) 74.3 % (42-78); TOTAL CELLS COUNTED % (AUTO) 100 %
[2018-09-15 15:59] LABS: INTERNATIONAL RATION (INR) 0.94
[2018-09-15 16:00] LABS: PARTIAL THROMBOPLASTIN TIME 36.3 SEC (23.5-35.8)
[2018-09-15 16:05] LABS: ANION GAP 9 (5-19); BLOOD UREA NITROGEN 13 mg/dL (7-20); CALCIUM 9.1 mg/dL (8.4-10.2); CARBON DIOXIDE 28 mmol/L (22-30); CHLORIDE 92 mmol/L (98-107); GLUCOSE 109 mg/dL (75-110); POTASSIUM 4.7 mmol/L (3.6-5.0); SODIUM 128.6 mmol/L (137-145)
[2018-09-15 17:13] VITALS: BP 165/93
== END 2018-09-15 17:14 | disposition home or self-care (01) ==
LOC: ER 14:52
PROC: 0HQ4XZZ Repair Neck Skin, External Approach (ICD-10-PCS; principal; 2018-09-15)
DX: R58 Hemorrhage, not elsewhere classified (principal); R22.1 Localized swelling, mass and lump, neck; E87.1 Hypo-osmolality and hyponatremia; D64.9 Anemia, unspecified; Z79.899 Other long term (current) drug therapy; F17.200 Nicotine dependence, unspecified, uncomplicated; I10 Essential (primary) hypertension
CPT/HCPCS: 12001; 99283; 36415; 85025; 85610; 85730; 80048; J3490

== ENCOUNTER 2018-09-30 08:35 | Outpatient (CLI) | payer MEDICARE ==
[~2018-09-30 08:35] MED LIST: CETUXIMAB IV PRN; CONTAINER EMPTY IV PRN; DIPHENHYDRAMINE HCL 50 MG in NORMAL SALINE 50 ML IV PRN; NORMAL SALINE 250 ML IV PRN
[2018-09-30 12:33] VITALS: BP 110/60
== END 2018-09-30 12:33 | disposition home or self-care (01) ==
LOC: II 08:35 → 5TH 08:39 → II 12:33
PROVIDERS: ATTEND Internal Medicine Hematology & Oncology
PROC: 3E0430M Introduction of Antineoplastic, Monoclonal Antibody, into Central Vein, Percutaneous Approach (ICD-10-PCS; principal; 2018-09-30)
PROC: 3E043GC Introduction of Other Therapeutic Substance into Central Vein, Percutaneous Approach (ICD-10-PCS; 2018-09-30)
DX: Z51.11 Encounter for antineoplastic chemotherapy (principal); C76.0 Malignant neoplasm of head, face and neck
CPT/HCPCS: 96413; 96415; 96367; 96374; J1200; A9270; J9055; J3490

== ENCOUNTER 2018-10-01 01:18 | Inpatient (IN) | payer MEDICARE ==
[2018-10-01] MEDS ORDERED: LORAZEPAM INJ 2 MG/1 ML VIAL IV ONE ×2 (02:03→03:14)
--- NOTE | 2018-10-01 02:03 | ER Document Report ---
ED General - General Stated Complaint: ALTERED MENTAL STATUS Time Seen by Provider: 10/01/18 01:56 Notes: 63-year-old male to the emergency department for altered mental status. Patient has metastatic neck cancer. Currently being treated by oncology. Had chemo yesterday, Erbitux. Girlfriend states that tonight he began repeating the word "Pita, Pita, Pita "over and over again. Seems altered and agitated. TRAVEL OUTSIDE OF THE [place] IN LAST 30 DAYS: No - HPI Onset: Just prior to arrival Severity: Severe Associated symptoms: None - Related Data Allergies/Adverse Reactions: No Known Allergies Allergy (Verified 08/25/18 05:45) Past Medical History - General Cannot obtain history due to: Altered mental status - Social History Smoking Status: Unknown if Ever Smoked Family History: Reviewed & Not Pertinent - Past Medical History Cardiac Medical History: Reports: Hx Hypertension Renal/ Medical History: Denies: Hx Peritoneal Dialysis Past Surgical History: Reports: Hx Abdominal Surgery Review of Systems - Review of Systems -: Yes ROS unobtainable due to patient's medical condition Physical Exam - Vital signs Vitals: Temp Resp 99.5 F 21 H 10/01/18 01:21 10/01/18 01:21 Interpretation: Tachycardic - Notes Notes: Agitated, confused - HEENT Notes: Patient has midline trach, large mass on the right side of the neck. Small amount of dried blood. Some dried blood around the trach and on the right side of the face. Pupils are equal bilateral and reactive to light. - Respiratory Respiratory status: No respiratory distress Chest status: Nontender Breath sounds: Normal Chest palpation: Normal - Cardiovascular Rhythm: Tachycardia Heart sounds: Normal auscultation Murmur: No - Abdominal Inspection: Normal Distension: No distension Bowel sounds: Normal Tenderness: Nontender Organomegaly: No organomegaly - Back Back: Normal, Nontender - Extremities General upper extremity: Normal inspection, Nontender, Normal color, Normal ROM, Normal temperature General lower extremity: Normal inspection, Nontender, Normal color, Normal ROM, Normal temperature. No: Roel's sign - Neurological Cognition: Confused Orientation: Disoriented to person [place] Coma Scale Verbal: Confused - Skin Skin Temperature: Warm Skin Moisture: Dry Skin Color: Normal, Other - mass on the right side of the neck. Course - Re-evaluation Re-evalutation: 10/01/18 04:31 Patient constantly repeating the word "Pita". I am concerned that this could r epresent seizure-like activity versus a metastatic brain lesion. A stat CT scan was ordered. No obvious midline shift. Patient did respond to Ativan but the Ativan was short-lived. I did consult with patient's oncologist, Dr. Wall. She recommends proceeding with a CT scan with IV contrast of the head and neck as more likely this does represent mass. Patient's H&H are low and with his bleeding history I am going to go ahead and transfuse him. I will also add steroids at this time. I am going to load him with Keppra in the event that this is seizure. Dr. Wall with oncology states that this is a nonoperative treatment at this time and that most of his therapy is primarily aimed at pa lliation of his symptoms. Family members are here at this time. Patient is unable to answer questions. I am proceeding with this plan of action at this time and we will constantly reassess. Regards to transfer Dr. Wall does not feel patient would benefit from a transfer at this time as there really is no other treatment options available other than palliative chemo and possibly palliative radiation. 10/01/18 05:37 Patient had sudden onset of significant and severe bleeding to the fungating lesion on the right side of his neck. Patient lost approximately 500 mL's not more blood within the course of about 10 minutes. Immediate attention was given to the bleeding. TXA was given IV to try and stem the tide of the bleeding. Surgifoam was applied to the large mass. Tranexamic acid was also sprayed on the mass. Direct pressure was held. After approximately 45 minutes of holding pressure and reapplying TXA and Surgifoam bleeding was successfully temporized. pr specialist Dr. Floyd was requested to come and help with any potential interventions which may be possible. Patient already has a tracheostomy so I would like to have ENT evaluate the tracheostomy for replacement with a suitable trach for which we can intubate and ventilate with if needed. Once patient is stable we will proceed with a CT scan of the head and neck with contrast. 2 units of rapid release blood was ordered and transfused as well. Versed was given for sedation and to help calm the patient down. Currently patient is resting comfortably. His oxygen saturations are 100% with oxygen being applied to the trach collar. 10/01/18 05:49 I have communicated with patient's family at this time and informed them about the grave nature of his current condition 10/01/18 06:33 with ear nose and throat specialty is here. Patient was cauterized once again at the bedside by ENT. Prior to the cauterization and operative treatment by ENT patient was prepped for ventilator. The fenestrated trach was removed and replaced with a nonfenestrated cuffed tracheostomy by ENT. After airway was secure, patient was given sedation with 100 mg of propofol bolus followed by propofol drip and one initial dose of fentanyl. Vecuronium was given as well. Vital signs remained stable at this time. Bleeding has been controlled. I did speak with the oncologist again and she will arrived to the ER and try and communicate with family here shortly about palliative care. Patient's appraiser personal property is Pita:[phone] 10/01/18 07:11 Laboratory 10/01/18 10/01/18 10/01/18 01:35 01:35 01:35 WBC 11.6 H RBC 2.59 L Hgb 8.2 L Hct 24.1 L MCV 93 MCH 31.7 MCHC 34.1 RDW 12.7 Plt Count 515 H Total Counted 100 Seg Neutrophils % Not Reportable Seg Neuts % (Manual) 94 H Lymphocytes % Not Reportable Lymphocytes % (Manual) 4 L Monocytes % Not Reportable Monocytes % (Manual) 2 L Eosinophils % Not Reportable Eosinophils % (Manual) 0 Basophils % Not Reportable Basophils % (Manual) 0 Absolute Neutrophils Not Reportable Abs Neuts (Manual) 10.9 H Absolute Lymphocytes Not Reportable Abs Lymphs (Manual) 0.5 Absolute Monocytes Not Reportable Abs Monocytes (Manual) 0.2 Absolute Eosinophils Not Reportable Absolute Eos (Manual) 0.0 Absolute Basophils Not Reportable Abs Basophils (Manual) 0.0 Platelet Comment ADEQUATE Hypochromasia SLIGHT Rouleaux SLIGHT PT 13.7 INR 1.00 APTT 34.9 Sodium 128.7 L Potassium 5.3 H Chloride 94 L Carbon Dioxide 25 Anion Gap 10 BUN 20 Creatinine 0.90 Est GFR ( Amer) > 60 Est GFR (Non-Af Amer) > 60 Glucose 97 Lactic Acid Calcium 9.3 Total Bilirubin 0.4 Direct Bilirubin 0.3 Neonat Total Bilirubin Not Reportable Neonat Direct Bilirubin Not Reportable Neonat Indirect Bili Not Reportable AST 15 L ALT 11 L Alkaline Phosphatase 134 H Total Protein 5.8 L Albumin 3.4 L Serum Alcohol Blood Type Antibody Screen Crossmatch 10/01/18 10/01/18 10/01/18 01:35 01:35 03:25 WBC RBC Hgb Hct MCV MCH MCHC RDW Plt Count Total Counted Seg Neutrophils % Seg Neuts % (Manual) Lymphocytes % Lymphocytes % (Manual) Monocytes % Monocytes % (Manual) Eosinophils % Eosinophils % (Manual) Basophils % Basophils % (Manual) Absolute Neutrophils Abs Neuts (Manual) Absolute Lymphocytes Abs Lymphs (Manual) Absolute Monocytes Abs Monocytes (Manual) Absolute Eosinophils Absolute Eos (Manual) Absolute Basophils Abs Basophils (Manual) Platelet Comment Hypochromasia Rouleaux PT INR APTT Sodium Potassium Chloride Carbon Dioxide Anion Gap BUN Creatinine Est GFR ( Amer) Est GFR (Non-Af Amer) Glucose Lactic Acid 1.6 Calcium Total Bilirubin Direct Bilirubin Neonat Total Bilirubin Neonat Direct Bilirubin Neonat Indirect Bili AST ALT Alkaline Phosphatase Total Protein Albumin Serum Alcohol < 10 Blood Type A POSITIVE Antibody Screen NEGATIVE Crossmatch See Detail Chest X-Ray 10/01/18 02:02 IMPRESSION: No acute cardiopulmonary findings. Head CT 10/01/18 02:03 IMPRESSION: No acute intracranial findings. 10/01/18 07:17 - Vital Signs Vital signs: Temp Pulse Resp BP Pulse Ox 99.5 F 16 118/73 100 10/01/18 01:21 10/01/18 07:06 10/01/18 07:11 10/01/18 07:11 - Laboratory Result Diagrams: 10/01/18 01:35 10/01/18 01:35 Laboratory results interpreted by me: 10/01/18 10/01/18 10/01/18 01:35 01:35 03:25 WBC 11.6 H RBC 2.59 L Hgb 8.2 L Hct 24.1 L Plt Count 515 H Seg Neuts % (Manual) 94 H Lymphocytes % (Manual) 4 L Monocytes % (Manual) 2 L Abs Neuts (Manual) 10.9 H Sodium 128.7 L Potassium 5.3 H Chloride 94 L AST 15 L ALT 11 L Alkaline Phosphatase 134 H Total Protein 5.8 L Albumin 3.4 L Crossmatch See Detail Critical Care Note - Critical Care Note Total time excluding time spent on procedures (mins): 90 Comments: Acute altered mental status, acute life-threatening hemorrhage, consultation with specialist Discharge - Discharge Clinical Impression: Acute hemorrhage, Neck malignant neoplasm, Hyponatremia Altered mental status, unspecified Qualifiers: Altered mental status type: unspecified Qualified Code(s): R41.82 - Altered mental status, unspecified Condition: Critical Disposition: ADMITTED INPATIENT Admitting Provider: [facility] Unit Admitted: ICU
[2018-10-01 02:17] LABS: HEMATOCRIT 24.1 % (37.9-51.0); HEMOGLOBIN 8.2 g/dL (13.5-17.0); MEAN CORPUSCULAR HEMOGLOBIN 31.7 pg (27.0-33.4); MEAN CORPUSCULAR HGB CONC 34.1 g/dL (32.0-36.0); MEAN CORPUSCULAR VOLUME 93 fl (80-97); PLATELET COUNT 515 10^3/uL (150-450); PROTHROMBIN TIME 13.7 SEC (11.4-15.4); RED BLOOD COUNT 2.59 10^6/uL (4.35-5.55); RED CELL DISTRIBUTION WIDTH 12.7 % (11.5-14.0); WHITE BLOOD COUNT 11.6 10^3/uL (4.0-10.5)
[2018-10-01 02:18] LABS: PARTIAL THROMBOPLASTIN TIME 34.9 SEC (23.5-35.8)
[2018-10-01 02:19] LABS: ALANINE AMINOTRANSFERASE 11 U/L (21-72); ALBUMIN 3.4 g/dL (3.5-5.0); ALKALINE PHOSPHATASE 134 U/L (38-126); ANION GAP 10 (5-19); ASPARTATE AMINO TRANSFERASE 15 U/L (17-59); BILIRUBIN,DIRECT 0.3 mg/dL (0.0-0.4); BILIRUBIN,TOTAL 0.4 mg/dL (0.2-1.3); BLOOD UREA NITROGEN 20 mg/dL (7-20); CALCIUM 9.3 mg/dL (8.4-10.2); CARBON DIOXIDE 25 mmol/L (22-30); CHLORIDE 94 mmol/L (98-107); GLUCOSE 97 mg/dL (75-110); POTASSIUM 5.3 mmol/L (3.6-5.0); SODIUM 128.7 mmol/L (137-145); TOTAL PROTEIN 5.8 g/dL (6.3-8.2)
[2018-10-01 02:44] LABS: ABSOLUTE LYMPHOCYTES# (MANUAL) 0.5 10^3/uL (0.5-4.7); ABSOLUTE MONOCYTES # (MANUAL) 0.2 10^3/uL (0.1-1.4); ABSOLUTE NEUTROPHILS# (MANUAL) 10.9 10^3/uL (1.7-8.2); BASOPHILS % (MANUAL) 0 % (0-2); EOSINOPHILS % (MANUAL) 0 % (0-6); HYPOCHROMASIA SLIGHT; LYMPHOCYTES % (MANUAL) 4 % (13-45); MONOCYTES % (MANUAL) 2 % (3-13); SEGMENTED NEUTROPHILS % (MAN) 94 % (42-78); TOTAL CELLS COUNTED 100
[2018-10-01 02:45] LABS: PLATELET COMMENT ADEQUATE; ROULEAUX SLIGHT
--- NOTE | 2018-10-01 03:17 | RADIOLOGY REPORT (SQ) ---
CLINICAL HISTORY: Altered Mental Status, PAROTID TUMOR. COMPARISON: August 25, 2018. TECHNIQUE: CT HEAD WITHOUT IV CONTRAST on 10/01/2018 2:03 AM [employer] This exam was performed according to our departmental dose-optimization program, which includes automated exposure control, adjustment of the mA and/or kV according to patient size and/or use of iterative reconstruction technique. FINDINGS: There is no acute hemorrhage, mass effect or midline shift. Sandhu-white differentiation is preserved. There is no hydrocephalus. There is no significant volume loss for age. There are mild patchy hypodensities within the periventricular and subcortical white matter, consistent with microangiopathic ischemic changes. Again noted is a large mass extending from the right parotid gland measuring at least 6.5 x 7.0 cm. The calvarium is intact. Orbits and globes are unremarkable. The paranasal sinuses are clear. Mastoid air cells are clear. IMPRESSION: No acute intracranial findings.
--- NOTE | 2018-10-01 03:18 | RADIOLOGY REPORT (SQ) ---
EXAM DESCRIPTION: XR CHEST 1 VIEW COMPLETED DATE/TME: 10/01/2018 02:02 CLINICAL HISTORY: 63 years Male, altered COMPARISON: May 14, 2018 NUMBER OF VIEWS/TECHNIQUE: 1/AP FINDINGS: Clear lungs of adequate volume, and normal cardiac silhouette. Tracheostomy tube. Adequate appearing left subclavian central line. Atherosclerotic vascular disease. Skinfold artifact pattern of the right upper hemithorax. No pneumothorax. Stable bony thorax. IMPRESSION: No acute cardiopulmonary findings.
[2018-10-01] MEDS ORDERED: NORMAL SALINE 1000 ML 1,000 ML IV ONE (03:20)
[2018-10-01] MEDS ORDERED: DEXAMETHASONE SOD PHOS INJ 10 MG/1 ML VIAL IV ONE (04:03)
[2018-10-01] MEDS ORDERED: LEVETIRACETAM 1000 MG/NACL-ISO 1,000 MG/100 ML RTUPB IV ONE (04:04)
[2018-10-01] MEDS ORDERED: NORMAL SALINE 250 ML IV PRN (04:23)
[2018-10-01] MEDS ORDERED: MIDAZOLAM 2 MG/2 ML INJ IV ONE ×2 (04:23→06:58)
[2018-10-01] MEDS ORDERED: TRANEXAMIC ACID INJ/PF 1,000 MG/10 ML SDV IV ONE ×3 (04:47→06:59)
[2018-10-01] MEDS ORDERED: MIDAZOLAM 2 MG/2 ML INJ ONE (05:18)
[2018-10-01] MEDS ORDERED: PROPOFOL 1,000 MG/100 ML INFUS..BTL IV ONE (05:25)
[2018-10-01] MEDS: PROPOFOL 1,000 MG/100 ML INFUS..BTL IV PRN ×4 (06:00→23:06)
[2018-10-01] MEDS ORDERED: FENTANYL CITRATE INJ/PF 100 MCG/2 ML AMPUL ONE (06:04)
[2018-10-01] MEDS ORDERED: PROPOFOL INJ 200 MG/20 ML VIAL IV ONE (06:19)
[2018-10-01] MEDS ORDERED: FENTANYL CITRATE INJ/PF 100 MCG/2 ML AMPUL IV ONE (06:20)
[2018-10-01] MEDS ORDERED: VECURONIUM BROMIDE INJ 10 MG VIAL IV ONE (06:20)
[2018-10-01] MEDS ORDERED: THROMBIN (BOVINE) 5000 UNIT EPITAXIS KIT TP ONE (06:32)
[2018-10-01] MEDS ORDERED: THROMBIN (BOVINE) 5000 UNIT EPITAXIS KIT ONE (07:00)
--- NOTE | 2018-10-01 08:09 | PDOC CONSULTATION ---
Consultation Consult Date: 10/01/18 Consult reason:: Hematology/Oncology consulta was requested for patient with acute bleeding from head/neck cancer History of Present Illness Admission Date/PCP: 10/01/18 07:34 History of Present Illness: GRETA BELTRÁN is a 63 year old male who was diagnosed with extensive head and neck cancer over 6 months ago. However, he moved to this area and did not undergo treatment for over 3 months. He recently presented to the ED with bleeding from the tumor over his right cheek and was referred for further treatment. He was found to have new lung mets. Patient and significant other discussed treatment options, including Hospice, but due to the bleeding, they opted for some palliative chemotherapy to see if symptoms could be managed better. He started treatment with cetuximab about 2 days ago. Last night, he began having altered mental status with repeating the same word over and over and arms were flailing. He was brought to the ED by EMS and evaluated. It was thought that he was having either a new metastatic lesion or something else causing seizure like activity. However, before further work-up could be obtained, he started bleeding profusely from his tumor. He was sedated and placed on ventilator. The seizure like activity did calm briefly after ativan but returned again a short time later. Past Medical History Cardiac Medical History: Reports: Hypertension Social History Smoking Status: Unknown if Ever Smoked Family History Family History: Reviewed & Not Pertinent Family History: Patient on vent and no further information may be obtained. Parental Family History Reviewed: No Children Family History Reviewed: No Sibling(s) Family History Reviewed.: No Medication/Allergy Allergies/Adverse Reactions: No Known Allergies Allergy (Verified 08/25/18 05:45) Review of Systems ROS unobtainable: Due to endotracheal tube Physical Exam Vital Signs: Temp Pulse Resp BP Pulse Ox 99.5 F 16 118/73 100 10/01/18 01:21 10/01/18 07:06 10/01/18 07:11 10/01/18 07:11 Intake & Output 09/30/18 10/01/18 10/02/18 06:59 06:59 06:59 Intake Total 1107 Balance 1107 Weight 69.4 kg General appearance: PRESENT: well-developed, well-nourished Exam: 63 year old male. Sedated, on vent with Trach and PEG. Head exam: PRESENT: other - Right cheek is bandaged. He has a large fungating mass in this area. Mouth exam: PRESENT: dry mucosa Neck exam: PRESENT: tracheostomy. ABSENT: lymphadenopathy Respiratory exam: PRESENT: clear to auscultation kleber, unlabored Cardiovascular exam: PRESENT: RRR Vascular exam: PRESENT: pallor GI/Abdominal exam: PRESENT: soft. ABSENT: mass Extremities exam: ABSENT: pedal edema Neurological exam: PRESENT: other - sedated on vent. Focused psych exam: PRESENT: other - Sedated on vent Skin exam: PRESENT: pallor Results Laboratory Results: 10/01/18 01:35 10/01/18 01:35 10/01/18 10/01/18 10/01/18 01:35 01:35 01:35 WBC 11.6 H RBC 2.59 L Hgb 8.2 L Hct 24.1 L MCV 93 MCH 31.7 MCHC 34.1 RDW 12.7 Plt Count 515 H Seg Neutrophils % Not Reportable Lymphocytes % Not Reportable Monocytes % Not Reportable Eosinophils % Not Reportable Basophils % Not Reportable Absolute Neutrophils Not Reportable Absolute Lymphocytes Not Reportable Absolute Monocytes Not Reportable Absolute Eosinophils Not Reportable Absolute Basophils Not Reportable Sodium 128.7 L Potassium 5.3 H Chloride 94 L Carbon Dioxide 25 Anion Gap 10 BUN 20 Creatinine 0.90 Est GFR ( Amer) > 60 Est GFR (Non-Af Amer) > 60 Glucose 97 Lactic Acid 1.6 Calcium 9.3 Total Bilirubin 0.4 AST 15 L ALT 11 L Alkaline Phosphatase 134 H Total Protein 5.8 L Albumin 3.4 L Blood Type Antibody Screen 10/01/18 03:25 WBC RBC Hgb Hct MCV MCH MCHC RDW Plt Count Seg Neutrophils % Lymphocytes % Monocytes % Eosinophils % Basophils % Absolute Neutrophils Absolute Lymphocytes Absolute Monocytes Absolute Eosinophils Absolute Basophils Sodium Potassium Chloride Carbon Dioxide Anion Gap BUN Creatinine Est GFR ( Amer) Est GFR (Non-Af Amer) Glucose Lactic Acid Calcium Total Bilirubin AST ALT Alkaline Phosphatase Total Protein Albumin Blood Type A POSITIVE Antibody Screen NEGATIVE Impressions: Chest X-Ray 10/01/18 02:02 IMPRESSION: No acute cardiopulmonary findings. Head CT 10/01/18 02:03 IMPRESSION: No acute intracranial findings. Status: Image reviewed by me Assessment & Plan - Diagnosis (1) Neck malignant neoplasm Is this a current diagnosis for this admission?: Yes Plan: He did receive 1 dose of erbitux (cetuximab) about 2 days ago. This is a targeted angiogenesis inhibitor which should not lower blood counts significant ly, but may have increased bleeding due to tumor shrinking and exposing blood vessels. It is not immunotherapy. At this point, I do not believe any further chemo or radiation is in the patient's best interest. (2) Acute hemorrhage Is this a current diagnosis for this admission?: Yes Plan: Patient and family were aware of risk of bleeding with treatment, as tumor is next to major blood vessels. I do not believe any surgery or other treatment is going to make a meaningful difference. (3) Altered mental status, unspecified Qualifiers: Altered mental status type: unspecified Qualified Code(s): R41.82 - Altered mental status, unspecified Is this a current diagnosis for this admission?: Yes Plan: Symptoms sound like a partial seizure. He did respond to ativan and has been started on Keppra. - Plan Summary Plan Summary: I discussed situation at length with his significant other, Pita. Her number is [phone]. She agrees with a DNR order and no further aggressive measures. She would like to be able to have the opportunity to say goodbye, and speak with him, if sedation can be lightened and if patient is cognizant. She has requested that we assess him further at some point today by decreasing sedation. If he is not cognizant, then will discuss further about how long patient will remain on vent. Patient was discussed with both ED physician as well as hospitalist.
--- NOTE | 2018-10-01 09:07 | CONSULTATION REPORT E ---
Consultation Report NAME: GRETA BELTRÁN : 1955 AGE: 63Y DATE: 10/01/2018 ROOM: ED23 A TO: ELANA SEE MD FROM: CLAUDIO HAYES M.D. Requesting Physician HISTORY: This 63-year-old male was referred to the Otolaryngology Head and Neck Surgery Service by the Emergency Room for urgent evaluation. The patient has a history of head and neck carcinoma and has a large fungating mass involving his right upper neck. The patient is being followed by Oncology and received a new treatment on 30 September 2018. This resulted in bleeding of the fungating neck mass. The patient presented to the emergency room via ambulance and the emergency room physician had difficulty controlling the bleeding. The patient has a tracheostomy and a PEG tube in place. The emergency room tried various methods to control the hemorrhaging and eventually did get it slowed to a point where it was no longer actively bleeding. PHYSICAL EXAMINATION: There is a large fungating mass noted in the right upper neck extending onto the face in the area of the parotid gland. There was some oozing noted and this was controlled using suction Bovie electrocautery and bipolar electrocautery. Eventually hemostasis was obtained. Next, the wound was sprayed with thrombin and Surgicel was placed over the wound. Telfa and a light dressing was placed. Next, the tracheostomy tube was changed. The patient had a cuffless 6 Shiley, and this was changed to a cuffed 6 Shiley so that the patient can be placed on a ventilator. It should be noted that prior to intervention the patient was sedated and placed on a ventilator to achieve anesthesia. Again, hemostasis was obtained. No further bleeding was noted. ASSESSMENT: Head and neck carcinoma of unknown etiology. PLAN: The plan was discussed with the emergency room physician. The emergency room physician did contact the medical oncologist who is going to decide on further care. Because of the location of this mass and its exophytic appearance, may consider embolization as further bleeding is imminent. This decision will be made by the medical oncologist whether or not to proceed with that. DICTATING PHYSICIAN: ELANA SEE M.D. [id number] PHY#: [id number] ID: [id number] JOB#: [id number] ACCT: [id number] cc:ELANA SEE MD >
[2018-10-01] MEDS: LEVETIRACETAM 500 MG/NACL-ISO 500 MG/100 ML RTUPB IV SCH ×2 (09:51→22:05)
[2018-10-01] MEDS: PANTOPRAZOLE SODIUM 40 MG VIAL IV SCH (09:52)
--- NOTE | 2018-10-01 10:00 | RADIOLOGY REPORT (SQ) ---
EXAM DESCRIPTION: CT HEAD WITH COMPLETED DATE/TIME: 10/01/2018 9:22 am REASON FOR STUDY: altered mental status COMPARISON: None. TECHNIQUE: Axial images acquired through the brain with intravenous contrast. Images reviewed with b one, brain and subdural windows. Additional sagittal and coronal reconstructions were generated. Bhavya ges stored on PACS. All CT scanners at this facility use dose modulation, iterative reconstruction, and/or weight based d osing when appropriate to reduce radiation dose to as low as reasonably achievable (ALARA). [facility]: Dose Right [facility]: CareDose [facility]: Dose Right [facility]: Teradose 4D [facility]: [employer] CONTRAST TYPE AND DOSE: 75 cc Omnipaque 350 RENAL FUNCTION: BUN 20, creatinine 0.9 RADIATION DOSE: CT Rad equipment meets quality standard of care and radiation dose reduction techniq ues were employed. CTDIvol: 53.2 mGy. DLP: 1097 mGy-cm.. LIMITATIONS: None. FINDINGS: VENTRICLES: Normal size and contour. CEREBRUM: No masses. No hemorrhage. No midline shift. Normal pandey/white matter differentiation. No ev idence for acute infarction. No enhancing lesions. CEREBELLUM: No masses. No hemorrhage. No alteration of density. No evidence for acute infarction. No enhancing lesions. EXTRA-AXIAL SPACES: No fluid collections. No enhancing lesions. ORBITS AND GLOBE: No intra- or extraconal masses. Normal contour of globe without masses. Bilateral cataract surgery. CALVARIUM: No fracture. PARANASAL SINUSES: Mild mucosal thickening within mean bilateral ethmoid air cells and right maxillar y sinus. Remaining paranasal sinuses and mastoid air cells are clear. SOFT TISSUES: Partially visualized irregular enhancing mass centered about the region of the right pa rotid gland. Please see same-day neck CT for detailed description. OTHER: No other significant finding. IMPRESSION: No evidence of acute intracranial abnormality. No definitive enhancing intracranial les ions identified. Partially visualized neck mass centered around the right parotid gland. Please see same-day neck CT for detailed description. EVIDENCE OF ACUTE STROKE: NO. TECHNICAL DOCUMENTATION: JOB ID: [id number] Quality ID # [id number]: Final reports with documentation of one or more dose reduction techniques (e.g., Au tomated exposure control, adjustment of the mA and/or kV according to patient size, use of iterative reconstruction technique) 2010 [employer]- All Rights Reserved Reading location - IP/workstation name: [email or web address]
--- NOTE | 2018-10-01 11:18 | RADIOLOGY REPORT (SQ) ---
EXAM DESCRIPTION: CT SOFT TISSUE NECK WITH COMPLETED DATE/TIME: 10/01/2018 9:22 am REASON FOR STUDY: altered mental status, neck cancer COMPARISON: 08/25/2018 TECHNIQUE: Post IV contrasted scanning from skull base through lung apices with review of bone, soft tissue and lung windows. Reconstructed coronal and sagittal MPR images reviewed. All images stored on PACS. All CT scanners at this facility use dose modulation, iterative reconstruction, and/or weight based d osing when appropriate to reduce radiation dose to as low as reasonably achievable (ALARA). [facility]: Dose Right [facility]: CareDose [facility]: Dose Right [facility]: Teradose 4D [facility]: [employer] CONTRAST TYPE AND DOSE: contrast/concentration: Isovue 350.00 mg/ml; Total Contrast Delivered: 75.0 ml; Total Saline Delivered: 55.0 ml RENAL FUNCTION: GFR > 60. RADIATION DOSE: CT Rad equipment meets quality standard of care and radiation dose reduction techniq ues were employed. CTDIvol: 13.4 mGy. DLP: 517 mGy-cm. . LIMITATIONS: None. FINDINGS: Right parotid space tumor now ulcerated. 6.2 x 7.0 cm, previously 6.8 x 6.9 cm. Cranioca udad diameter 10 cm not significantly changed. Indistinct margins between the primary mass and the a djacent lesion extending into the parapharyngeal space. Tumor has spread into the submandibular tria ngle across the midline in the tongue base. Enlarged right submandibular gland with central low atte nuation probably also invaded by tumor. Encasement of the right ICA which is barely patent. Left ju gulodigastric node previously 2.8 x 2.0 cm, now 3.5 x 2.3 cm. Left level 3 node unchanged. IMPRESSION: Disease progression with invasion into the tongue base crossing the midline. TECHNICAL DOCUMENTATION: JOB ID: [id number] Quality ID # [id number]: Final reports with documentation of one or more dose reduction techniques (e.g., Au tomated exposure control, adjustment of the mA and/or kV according to patient size, use of iterative reconstruction technique) 2010 [employer]- All Rights Reserved Reading location - IP/workstation name: [email or web address]
--- NOTE | 2018-10-01 11:41 | PDOC H&P ---
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 He was getting palliative treatment and did get Erbitux yesterday. Patient reportedly started becoming more confused last night calling her girlfriend's name the whole time. He was noted to be confused and was combative in the ER. Per ER physician, 4 mg of Ativan was not enough to control his agitation. He also developed significant bleeding from his neck mass in the ER. Decision was made to sedate him and connect him to the ventilator due to extreme agitation. There was questionable seizure-like activity in the ER as well hence he was also given IV Keppra. Past Medical History Cardiac Medical History: Reports: Hypertension Social History Smoking Status: Unknown if Ever Smoked Family History Family History: Reviewed & Not Pertinent Parental Family History Reviewed: No - sedated Children Family History Reviewed: No Sibling(s) Family History Reviewed.: No Medication/Allergy Home Medications: Minocycline HCl 100 mg PO BID 10/01/18 Tramadol HCl [Ultram 50 mg Tablet] 50 mg PO Q8HP PRN 10/01/18 Allergies/Adverse Reactions: No Known Allergies Allergy (Verified 08/25/18 05:45) Review of Systems ROS unobtainable: Due to mental status Physical Exam Vital Signs: Temp Pulse Resp BP Pulse Ox 99.6 F 112 H 16 103/63 97 10/01/18 05:00 10/01/18 05:00 10/01/18 10:01 10/01/18 10:01 10/01/18 10:01 Intake & Output 09/30/18 10/01/18 10/02/18 06:59 06:59 06:59 Intake Total 1107 41 Balance 1107 41 Weight 153 lb General appearance: PRESENT: other - sedated Head exam: PRESENT: atraumatic, normocephalic Eye exam: PRESENT: conjunctiva pink, EOMI, PERRLA. ABSENT: scleral icterus Ear exam: PRESENT: normal external ear exam Neck exam: PRESENT: other - large, fungating mass on the righ neck Respiratory exam: PRESENT: clear to auscultation kleber. ABSENT: rales, rhonchi, wheezes Cardiovascular exam: PRESENT: RRR. ABSENT: diastolic murmur, rubs, systolic murmur Pulses: PRESENT: normal dorsalis pedis pul GI/Abdominal exam: PRESENT: normal bowel sounds, soft. ABSENT: distended, guarding, mass, organolmegaly, rebound, tenderness Rectal exam: PRESENT: deferred Neurological exam: PRESENT: other - sedated Results Laboratory Results: 10/01/18 01:35 10/01/18 01:35 10/01/18 10/01/18 10/01/18 01:35 01:35 01:35 WBC 11.6 H RBC 2.59 L Hgb 8.2 L Hct 24.1 L MCV 93 MCH 31.7 MCHC 34.1 RDW 12.7 Plt Count 515 H Seg Neutrophils % Not Reportable Lymphocytes % Not Reportable Monocytes % Not Reportable Eosinophils % Not Reportable Basophils % Not Reportable Absolute Neutrophils Not Reportable Absolute Lymphocytes Not Reportable Absolute Monocytes Not Reportable Absolute Eosinophils Not Reportable Absolute Basophils Not Reportable Sodium 128.7 L Potassium 5.3 H Chloride 94 L Carbon Dioxide 25 Anion Gap 10 BUN 20 Creatinine 0.90 Est GFR ( Amer) > 60 Est GFR (Non-Af Amer) > 60 Glucose 97 Lactic Acid 1.6 Calcium 9.3 Total Bilirubin 0.4 AST 15 L ALT 11 L Alkaline Phosphatase 134 H Total Protein 5.8 L Albumin 3.4 L Blood Type Antibody Screen 10/01/18 03:25 WBC RBC Hgb Hct MCV MCH MCHC RDW Plt Count Seg Neutrophils % Lymphocytes % Monocytes % Eosinophils % Basophils % Absolute Neutrophils Absolute Lymphocytes Absolute Monocytes Absolute Eosinophils Absolute Basophils Sodium Potassium Chloride Carbon Dioxide Anion Gap BUN Creatinine Est GFR ( Amer) Est GFR (Non-Af Amer) Glucose Lactic Acid Calcium Total Bilirubin AST ALT Alkaline Phosphatase Total Protein Albumin Blood Type A POSITIVE Antibody Screen NEGATIVE Impressions: Chest X-Ray 10/01/18 02:02 IMPRESSION: No acute cardiopulmonary findings. Head CT 10/01/18 04:01 IMPRESSION: No evidence of acute intracranial abnormality. No definitive enhancing intracranial lesions identified. Partially visualized neck mass centered around the right parotid gland. Please see same-day neck CT for detailed description. EVIDENCE OF ACUTE STROKE: NO. Soft Tissue Neck CT 10/01/18 04:01 IMPRESSION: Disease progression with invasion into the tongue base crossing the midline. Assessment & Plan - Diagnosis (1) Acute encephalopathy Is this a current diagnosis for this admission?: Yes Plan: Discussed in length with oncology. There is definite concern for brain mets although. CT head is a poor study for evaluating brain mets. Patient has been made DNR after oncology discussed with DPOA. She does not want to proceed with hospice yet at this time and prefers that we try to wean him off the sedation first to reassess his mental function. Plan will ultimately be to transition him to hospice. (2) Neck malignant neoplasm Is this a current diagnosis for this admission?: Yes Plan: As per number 1. (3) Seizure Is this a current diagnosis for this admission?: Yes Plan: Possible seizure like activity in the ER. Possible brain mets. Will continue IV Keppra. - Time Time Spent: 30 to 50 Minutes
[2018-10-01 13:55] LABS: HEMATOCRIT 24.9 % (37.9-51.0); HEMOGLOBIN 8.8 g/dL (13.5-17.0); MEAN CORPUSCULAR HEMOGLOBIN 31.7 pg (27.0-33.4); MEAN CORPUSCULAR HGB CONC 35.3 g/dL (32.0-36.0); MEAN CORPUSCULAR VOLUME 90 fl (80-97); PLATELET COUNT 398 10^3/uL (150-450); RED BLOOD COUNT 2.77 10^6/uL (4.35-5.55); RED CELL DISTRIBUTION WIDTH 13.8 % (11.5-14.0); WHITE BLOOD COUNT 7.7 10^3/uL (4.0-10.5)
[2018-10-01 14:21] LABS: ABSOLUTE LYMPHOCYTES# (MANUAL) 0.4 10^3/uL (0.5-4.7); ABSOLUTE MONOCYTES # (MANUAL) 0.1 10^3/uL (0.1-1.4); ABSOLUTE NEUTROPHILS# (MANUAL) 7.2 10^3/uL (1.7-8.2); BASOPHILS % (MANUAL) 0 % (0-2); EOSINOPHILS % (MANUAL) 0 % (0-6); LYMPHOCYTES % (MANUAL) 5 % (13-45); MONOCYTES % (MANUAL) 1 % (3-13); SEGMENTED NEUTROPHILS % (MAN) 94 % (42-78); TOTAL CELLS COUNTED 100
[2018-10-01 14:22] LABS: PLATELET COMMENT ADEQUATE; RBC MORPHOLOGY COMMENT NORMO-CYTIC/CHROMIC
[2018-10-01 14:23] LABS: ALANINE AMINOTRANSFERASE 19 U/L (21-72); ALBUMIN 2.6 g/dL (3.5-5.0); ALKALINE PHOSPHATASE 103 U/L (38-126); ANION GAP 9 (5-19); ASPARTATE AMINO TRANSFERASE 14 U/L (17-59); BILIRUBIN,DIRECT 0.2 mg/dL (0.0-0.4); BILIRUBIN,TOTAL 0.5 mg/dL (0.2-1.3); BLOOD UREA NITROGEN 14 mg/dL (7-20); CALCIUM 8.5 mg/dL (8.4-10.2); CARBON DIOXIDE 22 mmol/L (22-30); CHLORIDE 101 mmol/L (98-107); GLUCOSE 125 mg/dL (75-110); SODIUM 132.1 mmol/L (137-145)
[2018-10-01 14:52] LABS: ARTERIAL BLOOD BASE EXCESS -1.9 mmol/L; ARTERIAL BLOOD H2CO3 0.86 mmol/L (1.05-1.35); ARTERIAL BLOOD HCO3 20.8 mmol/L (20-24); ARTERIAL BLOOD O2 SATURATION 99.4 % (94-98); ARTERIAL BLOOD PCO2 28.6 mmHg (35-45); ARTERIAL BLOOD PH 7.48 (7.35-7.45); ARTERIAL BLOOD PO2 180.4 mmHg (80-100); ARTERIAL BLOOD TOTAL CO2 21.7 mmol/L (23-27)
[2018-10-01 14:55] LABS: ARTERIAL BLOOD FIO2 45%
[2018-10-01] MEDS: NORMAL SALINE 1000 ML 1,000 ML IV PRN (16:30)
[2018-10-01] MEDS: AMPICILLIN SODIUM/SULBACTAM NA 3 GM in NORMAL SALINE 100 ML IV SCH (18:04)
[2018-10-02] MEDS: AMPICILLIN SODIUM/SULBACTAM NA 3 GM in NORMAL SALINE 100 ML IV SCH ×3 (02:58→18:24)
[2018-10-02 04:16] LABS: ARTERIAL BLOOD BASE EXCESS -0.9 mmol/L; ARTERIAL BLOOD H2CO3 0.91 mmol/L (1.05-1.35); ARTERIAL BLOOD HCO3 22.2 mmol/L (20-24); ARTERIAL BLOOD PCO2 30.1 mmHg (35-45); ARTERIAL BLOOD PH 7.49 (7.35-7.45); ARTERIAL BLOOD PO2 99.2 mmHg (80-100); ARTERIAL BLOOD TOTAL CO2 23.1 mmol/L (23-27)
[2018-10-02 04:17] LABS: ARTERIAL BLOOD FIO2 21%
[2018-10-02 05:04] LABS: ABSOLUTE BASOPHILS # (AUTO) 0.1 10^3/uL (0.0-0.2); ABSOLUTE LYMPHOCYTES (AUTO) 0.8 10^3/uL (0.5-4.7); ABSOLUTE MONOCYTES (AUTO) 0.7 10^3/uL (0.1-1.4); BASOPHILS % (AUTO) 0.7 % (0-2); EOSINOPHILS % (AUTO) 0.2 % (0-6); HEMATOCRIT 23.2 % (37.9-51.0); HEMOGLOBIN 8.1 g/dL (13.5-17.0); LYMPHOCYTES % (AUTO) 9.6 % (13-45); MEAN CORPUSCULAR HEMOGLOBIN 31.6 pg (27.0-33.4); MEAN CORPUSCULAR HGB CONC 34.9 g/dL (32.0-36.0); MEAN CORPUSCULAR VOLUME 91 fl (80-97); MONOCYTES % (AUTO) 7.6 % (3-13); PLATELET COUNT 332 10^3/uL (150-450); RED BLOOD COUNT 2.56 10^6/uL (4.35-5.55); RED CELL DISTRIBUTION WIDTH 13.8 % (11.5-14.0); SEGMENTED NEUTROPHILS % (AUTO) 81.9 % (42-78); TOTAL CELLS COUNTED % (AUTO) 100 %; WHITE BLOOD COUNT 8.6 10^3/uL (4.0-10.5)
[2018-10-02] MEDS: PROPOFOL 1,000 MG/100 ML INFUS..BTL IV PRN ×2 (05:14→16:09)
[2018-10-02 05:20] LABS: ALANINE AMINOTRANSFERASE 18 U/L (21-72); ALBUMIN 2.5 g/dL (3.5-5.0); ALKALINE PHOSPHATASE 90 U/L (38-126); ANION GAP 8 (5-19); ASPARTATE AMINO TRANSFERASE 11 U/L (17-59); BILIRUBIN,DIRECT 0.3 mg/dL (0.0-0.4); BILIRUBIN,TOTAL 0.4 mg/dL (0.2-1.3); BLOOD UREA NITROGEN 18 mg/dL (7-20); CALCIUM 8.5 mg/dL (8.4-10.2); CARBON DIOXIDE 22 mmol/L (22-30); CHLORIDE 102 mmol/L (98-107); GLUCOSE 103 mg/dL (75-110); POTASSIUM 4.6 mmol/L (3.6-5.0); SODIUM 132.1 mmol/L (137-145); TOTAL PROTEIN 4.6 g/dL (6.3-8.2)
--- NOTE | 2018-10-02 08:16 | PDOC PROGRESS REPORT ---
Subjective Progress Note for:: 10/02/18 Subjective:: Patient remains sedated on ventilator. Nurses report no further evidence of bleeding. No family has been in yet. Reason For Visit: ACUTE ENCEPHALOPATHY, ACUTE RESPIRATORY FAILURE Physical Exam Vital Signs: Temp Pulse Resp BP Pulse Ox 97.7 F 63 18 131/64 H 96 10/02/18 06:00 10/01/18 20:00 10/01/18 18:00 10/01/18 18:00 10/02/18 04:29 Intake & Output 10/01/18 10/02/18 10/03/18 06:59 06:59 06:59 Intake Total 1107 441 35 Output Total 2085 Balance 1107 -1644 35 Weight 69.4 kg 71.2 kg General appearance: PRESENT: thin Head exam: PRESENT: normocephalic Respiratory exam: PRESENT: clear to auscultation kleber, unlabored Cardiovascular exam: PRESENT: RRR GI/Abdominal exam: PRESENT: soft. ABSENT: tenderness Neurological exam: PRESENT: other - Sedated on vent, but moves head and opens eyes some. Skin exam: PRESENT: other - Right cheek with covered dressing. His PEG tube was caked with discharge/fluid. Results Laboratory Results: 10/02/18 04:43 10/02/18 04:43 10/01/18 10/01/18 10/01/18 13:38 13:38 13:38 WBC 7.7 RBC 2.77 L Hgb 8.8 L Hct 24.9 L MCV 90 MCH 31.7 MCHC 35.3 RDW 13.8 Plt Count 398 Seg Neutrophils % Not Reportable Lymphocytes % Not Reportable Monocytes % Not Reportable Eosinophils % Not Reportable Basophils % Not Reportable Absolute Neutrophils Not Reportable Absolute Lymphocytes Not Reportable Absolute Monocytes Not Reportable Absolute Eosinophils Not Reportable Absolute Basophils Not Reportable Carbonic Acid HCO3/H2CO3 Ratio ABG pH ABG pCO2 ABG pO2 ABG HCO3 ABG O2 Saturation ABG Base Excess FiO2 Sodium 132.1 L Potassium 5.0 Chloride 101 Carbon Dioxide 22 Anion Gap 9 BUN 14 Creatinine 0.60 Est GFR ( Amer) > 60 Est GFR (Non-Af Amer) > 60 Glucose 125 H Calcium 8.5 Magnesium Total Bilirubin 0.5 AST 14 L ALT 19 L Alkaline Phosphatase 103 Total Protein 5.0 L Albumin 2.6 L Triglycerides 41 0210/02/18 10/02/18 14:35 04:00 04:43 WBC 8.6 RBC 2.56 L Hgb 8.1 L Hct 23.2 L MCV 91 MCH 31.6 MCHC 34.9 RDW 13.8 Plt Count 332 Seg Neutrophils % 81.9 H Lymphocytes % 9.6 L Monocytes % 7.6 Eosinophils % 0.2 Basophils % 0.7 Absolute Neutrophils 7.0 Absolute Lymphocytes 0.8 Absolute Monocytes 0.7 Absolute Eosinophils 0.0 Absolute Basophils 0.1 Carbonic Acid 0.86 L 0.91 L HCO3/H2CO3 Ratio 24:1 24:1 ABG pH 7.48 H 7.49 H ABG pCO2 28.6 L 30.1 L ABG pO2 180.4 H 99.2 ABG HCO3 20.8 22.2 ABG O2 Saturation 99.4 H 98.0 ABG Base Excess -1.9 -0.9 FiO2 45% 21% Sodium Potassium Chloride Carbon Dioxide Anion Gap BUN Creatinine Est GFR ( Amer) Est GFR (Non-Af Amer) Glucose Calcium Magnesium Total Bilirubin AST ALT Alkaline Phosphatase Total Protein Albumin Triglycerides 10/02/18 04:43 WBC RBC Hgb Hct MCV MCH MCHC RDW Plt Count Seg Neutrophils % Lymphocytes % Monocytes % Eosinophils % Basophils % Absolute Neutrophils Absolute Lymphocytes Absolute Monocytes Absolute Eosinophils Absolute Basophils Carbonic Acid HCO3/H2CO3 Ratio ABG pH ABG pCO2 ABG pO2 ABG HCO3 ABG O2 Saturation ABG Base Excess FiO2 Sodium 132.1 L Potassium 4.6 Chloride 102 Carbon Dioxide 22 Anion Gap 8 BUN 18 Creatinine 0.61 Est GFR ( Amer) > 60 Est GFR (Non-Af Amer) > 60 Glucose 103 Calcium 8.5 Magnesium 2.0 Total Bilirubin 0.4 AST 11 L ALT 18 L Alkaline Phosphatase 90 Total Protein 4.6 L Albumin 2.5 L Triglycerides Impressions: Head CT 10/01/18 04:01 IMPRESSION: No evidence of acute intracranial abnormality. No definitive enhancing intracranial lesions identified. Partially visualized neck mass centered around the right parotid gland. Please see same-day neck CT for detailed description. EVIDENCE OF ACUTE STROKE: NO. Soft Tissue Neck CT 10/01/18 04:01 IMPRESSION: Disease progression with invasion into the tongue base crossing the midline. Assessment & Plan - Diagnosis (1) Neck malignant neoplasm Is this a current diagnosis for this admission?: Yes Plan: All treatment will be palliative, as he has lung mets and presumed brain mets. I do not believe it is safe to further treat him, based on amount of bleeding. (2) Acute hemorrhage Is this a current diagnosis for this admission?: Yes (3) Altered mental status, unspecified Qualifiers: Altered mental status type: unspecified Qualified Code(s): R41.82 - Altered mental status, unspecified Is this a current diagnosis for this admission?: Yes Plan: Family has requested that we first wean his sedation and evaluate his mental status before they will come to see him. I believe inpatient palliate care is best option, as he has no capable family to care for him at this level at home. He is high risk for further bleeding, but patient and family have agreed to no further aggresive measures. Will continue Keppra to see if this helps the seizure-like activity. Will wean ventilator. Consider starting Tube feed.
--- NOTE | 2018-10-02 08:20 | RADIOLOGY REPORT (SQ) ---
EXAM DESCRIPTION: CHEST SINGLE VIEW COMPLETED DATE/TIME: 10/02/2018 6:41 am REASON FOR STUDY: Resp. Failure COMPARISON: Chest films 05/14/2018, 10/01/2018 CT chest 09/05/2018 EXAM PARAMETERS: NUMBER OF VIEWS: One view. TECHNIQUE: Single frontal radiographic view of the chest acquired. RADIATION DOSE: NA LIMITATIONS: None. FINDINGS: LUNGS AND PLEURA: Small nodules seen in both lungs on CT chest 09/05/2018 are difficult to a ppreciate by plain film. No acute infiltrates. No pleural effusion. No pneumothorax. Lungs are hyperinflated. MEDIASTINUM AND HILAR STRUCTURES: No masses. Contour normal. HEART AND VASCULAR STRUCTURES: No cardiomegaly in BONES: No acute findings. 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 Tracheostomy tube ti p in the upper trachea. OTHER: No other significant finding. IMPRESSION: NO ACUTE RADIOGRAPHIC FINDING IN THE CHEST. TECHNICAL DOCUMENTATION: JOB ID: [id number] Maintenance Assistant- All Rights Reserved Reading location - IP/workstation name: [email or web address]
[2018-10-02] MEDS: LEVETIRACETAM 500 MG/NACL-ISO 500 MG/100 ML RTUPB IV SCH ×2 (09:26→21:43)
[2018-10-02] MEDS: PANTOPRAZOLE SODIUM 40 MG VIAL IV SCH (09:27)
[2018-10-02] MEDS ORDERED: HALOPERIDOL LACTATE INJ 5 MG/1 ML VIAL ONE (12:07)
--- NOTE | 2018-10-02 12:57 | PDOC PROGRESS REPORT ---
Subjective Progress Note for:: 10/02/18 Subjective:: Sedated on mechanical ventilation Reason For Visit: ACUTE ENCEPHALOPATHY, ACUTE RESPIRATORY FAILURE Physical Exam Vital Signs: Temp Pulse Resp BP Pulse Ox 98.4 F 63 14 125/68 97 10/02/18 08:00 10/02/18 08:00 10/02/18 08:00 10/02/18 08:00 10/02/18 09:10 Intake & Output 10/01/18 10/02/18 10/03/18 06:59 06:59 06:59 Intake Total 1107 641 141 Output Total 2085 110 Balance 1107 -1444 31 Weight 69.4 kg 71.2 kg General appearance: PRESENT: no acute distress, disheveled, thin. ABSENT: cooperative Head exam: PRESENT: atraumatic, normocephalic Eye exam: PRESENT: conjunctiva pale. ABSENT: EOMI, nystagmus, periorbital swelling, scleral icterus Mouth exam: PRESENT: dry mucosa, neck supple, tongue midline, other Neck exam: PRESENT: tracheostomy. ABSENT: carotid bruit, full ROM, JVD, meningismus, tenderness, thyromegaly Respiratory exam: PRESENT: decreased breath sounds, prolonged expiratory phas, rales, rhonchi, unlabored. ABSENT: retraction, stridor Cardiovascular exam: PRESENT: RRR, +S1, +S2 Pulses: PRESENT: normal radial pulses GI/Abdominal exam: PRESENT: soft. ABSENT: tenderness Gentrourinary exam: PRESENT: indwelling catheter Extremities exam: PRESENT: +1 edema. ABSENT: calf tenderness, clubbing, joint swelling, pedal edema Musculoskeletal exam: ABSENT: deformity, dislocation Neurological exam: ABSENT: awake Skin exam: PRESENT: dry, warm Results Laboratory Results: 10/02/18 04:43 10/02/18 04:43 10/01/18 10/01/18 10/01/18 13:38 13:38 13:38 WBC 7.7 RBC 2.77 L Hgb 8.8 L Hct 24.9 L MCV 90 MCH 31.7 MCHC 35.3 RDW 13.8 Plt Count 398 Seg Neutrophils % Not Reportable Lymphocytes % Not Reportable Monocytes % Not Reportable Eosinophils % Not Reportable Basophils % Not Reportable Absolute Neutrophils Not Reportable Absolute Lymphocytes Not Reportable Absolute Monocytes Not Reportable Absolute Eosinophils Not Reportable Absolute Basophils Not Reportable Carbonic Acid HCO3/H2CO3 Ratio ABG pH ABG pCO2 ABG pO2 ABG HCO3 ABG O2 Saturation ABG Base Excess FiO2 Sodium 132.1 L Potassium 5.0 Chloride 101 Carbon Dioxide 22 Anion Gap 9 BUN 14 Creatinine 0.60 Est GFR ( Amer) > 60 Est GFR (Non-Af Amer) > 60 Glucose 125 H Calcium 8.5 Magnesium Total Bilirubin 0.5 AST 14 L ALT 19 L Alkaline Phosphatase 103 Total Protein 5.0 L Albumin 2.6 L Triglycerides 41 10/01/18 10/02/18 10/02/18 14:35 04:00 04:43 WBC 8.6 RBC 2.56 L Hgb 8.1 L Hct 23.2 L MCV 91 MCH 31.6 MCHC 34.9 RDW 13.8 Plt Count 332 Seg Neutrophils % 81.9 H Lymphocytes % 9.6 L Monocytes % 7.6 Eosinophils % 0.2 Basophils % 0.7 Absolute Neutrophils 7.0 Absolute Lymphocytes 0.8 Absolute Monocytes 0.7 Absolute Eosinophils 0.0 Absolute Basophils 0.1 Carbonic Acid 0.86 L 0.91 L HCO3/H2CO3 Ratio 24:1 24:1 ABG pH 7.48 H 7.49 H ABG pCO2 28.6 L 30.1 L ABG pO2 180.4 H 99.2 ABG HCO3 20.8 22.2 ABG O2 Saturation 99.4 H 98.0 ABG Base Excess -1.9 -0.9 FiO2 45% 21% Sodium Potassium Chloride Carbon Dioxide Anion Gap BUN Creatinine Est GFR ( Amer) Est GFR (Non-Af Amer) Glucose Calcium Magnesium Total Bilirubin AST ALT Alkaline Phosphatase Total Protein Albumin Triglycerides 10/02/18 04:43 WBC RBC Hgb Hct MCV MCH MCHC RDW Plt Count Seg Neutrophils % Lymphocytes % Monocytes % Eosinophils % Basophils % Absolute Neutrophils Absolute Lymphocytes Absolute Monocytes Absolute Eosinophils Absolute Basophils Carbonic Acid HCO3/H2CO3 Ratio ABG pH ABG pCO2 ABG pO2 ABG HCO3 ABG O2 Saturation ABG Base Excess FiO2 Sodium 132.1 L Potassium 4.6 Chloride 102 Carbon Dioxide 22 Anion Gap 8 BUN 18 Creatinine 0.61 Est GFR ( Amer) > 60 Est GFR (Non-Af Amer) > 60 Glucose 103 Calcium 8.5 Magnesium 2.0 Total Bilirubin 0.4 AST 11 L ALT 18 L Alkaline Phosphatase 90 Total Protein 4.6 L Albumin 2.5 L Triglycerides Impressions: Head CT 10/01/18 04:01 IMPRESSION: No evidence of acute intracranial abnormality. No definitive enhancing intracranial lesions identified. Partially visualized neck mass centered around the right parotid gland. Please see same-day neck CT for detailed description. EVIDENCE OF ACUTE STROKE: NO. Soft Tissue Neck CT 10/01/18 04:01 IMPRESSION: Disease progression with invasion into the tongue base crossing the midline. Chest X-Ray 10/02/18 06:00 IMPRESSION: NO ACUTE RADIOGRAPHIC FINDING IN THE CHEST. Assessment & Plan - Diagnosis (1) Altered mental status, unspecified Qualifiers: Altered mental status type: unspecified Qualified Code(s): R41.82 - Altered mental status, unspecified Is this a current diagnosis for this admission?: Yes Plan: Etiology uncertain whether some metabolic or secondary to hypoxia (2) Neck malignant neoplasm Is this a current diagnosis for this admission?: Yes Plan: Stage IV head and neck apparently when patient is agitated there was bleeding from the mass (3) Seizure Is this a current diagnosis for this admission?: Yes Plan: Antiseizure medication on board (4) Respiratory failure Is this a current diagnosis for this admission?: Yes Plan: T tube as tolerated - Time Total Critical Time (Minutes): 55
--- NOTE | 2018-10-02 12:57 | PDOC CONSULTATION ---
Consultation Consult Date: 10/01/18 Attending physician:: CLAUDIO HAYES Consult reason:: Respiratory failure History of Present Illness Admission Date/PCP: 10/01/18 07:34 History of Present Illness: GRETA BELTRÁN is a 63 year old male, Presented to the emergency room with altered mental status at which time he displayed increased confusion and agitation it is of note that the patient has s tage IV head and neck cancer and has a tracheostomy and a PEG. There was some question as to whether the patient had a seizure-like activity during his agitation and therefore he was given Keppra and subsequently attached to a ventilator. He is currently in the ICU intubated and sedated Past Medical History Cardiac Medical History: Reports: Hypertension Social History Information Source: [facility] Records Smoking Status: Former Smoker Passive smoke exposure as: Both Hx Recreational Drug Use: No Hx Prescription Drug Abuse: No - Advance Directive Resuscitation Status: Do Not Resuscitate Family History Parental Family History Reviewed: No Children Family History Reviewed: No Sibling(s) Family History Reviewed.: No Medication/Allergy Home Medications: Minocycline HCl 100 mg PO BID 10/01/18 Tramadol HCl [Ultram 50 mg Tablet] 50 mg PO Q8HP PRN 10/01/18 Allergies/Adverse Reactions: No Known Allergies Allergy (Verified 08/25/18 05:45) Review of Systems ROS unobtainable: Due to endotracheal tube, Due to mental status Physical Exam Vital Signs: Temp Pulse Resp BP Pulse Ox 98.8 F 86 17 144/56 H 100 10/01/18 14:25 10/01/18 14:25 10/01/18 14:25 10/01/18 14:25 10/01/18 14:25 Intake & Output 09/30/18 10/01/18 10/02/18 06:59 06:59 06:59 Intake Total 1107 41 Output Total 1200 Balance 1107 -1159 Weight 69.4 kg General appearance: PRESENT: no acute distress, disheveled, thin. ABSENT: cooperative Head exam: PRESENT: atraumatic, normocephalic Eye exam: PRESENT: conjunctiva pale. ABSENT: EOMI, nystagmus, periorbital swelling, scleral icterus Mouth exam: PRESENT: dry mucosa, neck supple, tongue midline Neck exam: PRESENT: tracheostomy. ABSENT: carotid bruit, full ROM, JVD, lymphadenopathy, meningismus, tenderness, thyromegaly Respiratory exam: PRESENT: decreased breath sounds, prolonged expiratory phas, rales, rhonchi, unlabored, wheezes. ABSENT: retraction, stridor Cardiovascular exam: PRESENT: RRR, +S1, +S2, tachycardia Pulses: PRESENT: normal radial pulses GI/Abdominal exam: PRESENT: soft, other - PEG tube. ABSENT: tenderness Extremities exam: ABSENT: calf tenderness, clubbing, full ROM, joint swelling Musculoskeletal exam: ABSENT: ambulatory, deformity, dislocation, full ROM Neurological exam: ABSENT: awake Skin exam: PRESENT: dry, warm Results Laboratory Results: 10/01/18 13:38 10/01/18 13:38 10/01/18 10/01/18 10/01/18 01:35 01:35 01:35 WBC 11.6 H RBC 2.59 L Hgb 8.2 L Hct 24.1 L MCV 93 MCH 31.7 MCHC 34.1 RDW 12.7 Plt Count 515 H Seg Neutrophils % Not Reportable Lymphocytes % Not Reportable Monocytes % Not Reportable Eosinophils % Not Reportable Basophils % Not Reportable Absolute Neutrophils Not Reportable Absolute Lymphocytes Not Reportable Absolute Monocytes Not Reportable Absolute Eosinophils Not Reportable Absolute Basophils Not Reportable Carbonic Acid HCO3/H2CO3 Ratio ABG pH ABG pCO2 ABG pO2 ABG HCO3 ABG O2 Saturation ABG Base Excess FiO2 Sodium 128.7 L Potassium 5.3 H Chloride 94 L Carbon Dioxide 25 Anion Gap 10 BUN 20 Creatinine 0.90 Est GFR ( Amer) > 60 Est GFR (Non-Af Amer) > 60 Glucose 97 Lactic Acid 1.6 Calcium 9.3 Total Bilirubin 0.4 AST 15 L ALT 11 L Alkaline Phosphatase 134 H Total Protein 5.8 L Albumin 3.4 L Blood Type Antibody Screen 10/01/18 10/01/18 10/01/18 03:25 13:38 13:38 WBC 7.7 RBC 2.77 L Hgb 8.8 L Hct 24.9 L MCV 90 MCH 31.7 MCHC 35.3 RDW 13.8 Plt Count 398 Seg Neutrophils % Not Reportable Lymphocytes % Not Reportable Monocytes % Not Reportable Eosinophils % Not Reportable Basophils % Not Reportable Absolute Neutrophils Not Reportable Absolute Lymphocytes Not Reportable Absolute Monocytes Not Reportable Absolute Eosinophils Not Reportable Absolute Basophils Not Reportable Carbonic Acid HCO3/H2CO3 Ratio ABG pH ABG pCO2 ABG pO2 ABG HCO3 ABG O2 Saturation ABG Base Excess FiO2 Sodium 132.1 L Potassium 5.0 Chloride 101 Carbon Dioxide 22 Anion Gap 9 BUN 14 Creatinine 0.60 Est GFR ( Amer) > 60 Est GFR (Non-Af Amer) > 60 Glucose 125 H Lactic Acid Calcium 8.5 Total Bilirubin 0.5 AST 14 L ALT 19 L Alkaline Phosphatase 103 Total Protein 5.0 L Albumin 2.6 L Blood Type A POSITIVE Antibody Screen NEGATIVE 10/01/18 14:35 WBC RBC Hgb Hct MCV MCH MCHC RDW Plt Count Seg Neutrophils % Lymphocytes % Monocytes % Eosinophils % Basophils % Absolute Neutrophils Absolute Lymphocytes Absolute Monocytes Absolute Eosinophils Absolute Basophils Carbonic Acid 0.86 L HCO3/H2CO3 Ratio 24:1 ABG pH 7.48 H ABG pCO2 28.6 L ABG pO2 180.4 H ABG HCO3 20.8 ABG O2 Saturation 99.4 H ABG Base Excess -1.9 FiO2 45% Sodium Potassium Chloride Carbon Dioxide Anion Gap BUN Creatinine Est GFR ( Amer) Est GFR (Non-Af Amer) Glucose Lactic Acid Calcium Total Bilirubin AST ALT Alkaline Phosphatase Total Protein Albumin Blood Type Antibody Screen Impressions: Chest X-Ray 10/01/18 02:02 IMPRESSION: No acute cardiopulmonary findings. Head CT 10/01/18 04:01 IMPRESSION: No evidence of acute intracranial abnormality. No definitive enhancing intracranial lesions identified. Partially visualized neck mass centered around the right parotid gland. Please see same-day neck CT for detailed description. EVIDENCE OF ACUTE STROKE: NO. Soft Tissue Neck CT 10/01/18 04:01 IMPRESSION: Disease progression with invasion into the tongue base crossing the midline. Assessment & Plan - Diagnosis (1) Altered mental status, unspecified Qualifiers: Altered mental status type: unspecified Qualified Code(s): R41.82 - Altered mental status, unspecified Is this a current diagnosis for this admission?: Yes Plan: Etiology uncertain whether some metabolic or secondary to hypoxia (2) Neck malignant neoplasm Is this a current diagnosis for this admission?: Yes Plan: Stage IV head and neck apparently when patient is agitated there was bleeding from the mass (3) Seizure Is this a current diagnosis for this admission?: Yes Plan: Antiseizure medication on board - Time Total Critical Time (Minutes): 50
--- NOTE | 2018-10-02 16:18 | PDOC PROGRESS REPORT ---
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 He was getting palliative treatment and did get Erbitux yesterday. Patient reportedly started becoming more confused last night calling her girlfriend's name the whole time. He was noted to be confused and was combative in the ER. Per ER physician, 4 mg of Ativan was not enough to control his agitation. He also developed significant bleeding from his neck mass in the ER. Decision was made to sedate him and connect him to the ventilator due to extreme agitation. There was questionable seizure-like activity in the ER as well hence he was also given IV Keppra. 09/22: Patient was weaned off propofol. He was switched to T piece by pulmonology. He is mouthing and is trying to communicate. He started becoming very agitated and combative later. No seizure-like activity. Reason For Visit: ACUTE ENCEPHALOPATHY, ACUTE RESPIRATORY FAILURE Physical Exam Vital Signs: Temp Pulse Resp BP Pulse Ox 98.2 F 72 20 160/76 H 100 10/02/18 14:00 10/02/18 14:00 10/02/18 14:00 10/02/18 14:00 10/02/18 14:00 Intake & Output 10/01/18 10/02/18 10/03/18 06:59 06:59 06:59 Intake Total 0898 107 2033 Output Total 2085 1920 Balance 1107 -6784 -620 Weight 153 lb 156 lb 15.506 oz General appearance: PRESENT: no acute distress Head exam: PRESENT: atraumatic, normocephalic Eye exam: PRESENT: conjunctiva pink, EOMI, PERRLA. ABSENT: scleral icterus Ear exam: PRESENT: normal external ear exam Mouth exam: PRESENT: moist, tongue midline Throat exam: PRESENT: other - right sided neck mass, no active bleeding Respiratory exam: PRESENT: clear to auscultation kleber. ABSENT: rales, rhonchi, wheezes Cardiovascular exam: PRESENT: RRR. ABSENT: diastolic murmur, rubs, systolic murmur Pulses: PRESENT: normal dorsalis pedis pul GI/Abdominal exam: PRESENT: normal bowel sounds, soft. ABSENT: distended, guarding, mass, organolmegaly, rebound, tenderness Rectal exam: PRESENT: deferred Neurological exam: PRESENT: alert, awake, CN II-XII grossly intact. ABSENT: motor sensory deficit Results Laboratory Results: 10/02/18 04:43 10/02/18 04:43 10/01/18 10/02/18 10/02/18 13:38 04:00 04:43 WBC 8.6 RBC 2.56 L Hgb 8.1 L Hct 23.2 L MCV 91 MCH 31.6 MCHC 34.9 RDW 13.8 Plt Count 332 Seg Neutrophils % 81.9 H Lymphocytes % 9.6 L Monocytes % 7.6 Eosinophils % 0.2 Basophils % 0.7 Absolute Neutrophils 7.0 Absolute Lymphocytes 0.8 Absolute Monocytes 0.7 Absolute Eosinophils 0.0 Absolute Basophils 0.1 Carbonic Acid 0.91 L HCO3/H2CO3 Ratio 24:1 ABG pH 7.49 H ABG pCO2 30.1 L ABG pO2 99.2 ABG HCO3 22.2 ABG O2 Saturation 98.0 ABG Base Excess -0.9 FiO2 21% Sodium Potassium Chloride Carbon Dioxide Anion Gap BUN Creatinine Est GFR ( Amer) Est GFR (Non-Af Amer) Glucose Calcium Magnesium Total Bilirubin AST ALT Alkaline Phosphatase Total Protein Albumin Triglycerides 41 10/02/18 04:43 WBC RBC Hgb Hct MCV MCH MCHC RDW Plt Count Seg Neutrophils % Lymphocytes % Monocytes % Eosinophils % Basophils % Absolute Neutrophils Absolute Lymphocytes Absolute Monocytes Absolute Eosinophils Absolute Basophils Carbonic Acid HCO3/H2CO3 Ratio ABG pH ABG pCO2 ABG pO2 ABG HCO3 ABG O2 Saturation ABG Base Excess FiO2 Sodium 132.1 L Potassium 4.6 Chloride 102 Carbon Dioxide 22 Anion Gap 8 BUN 18 Creatinine 0.61 Est GFR ( Amer) > 60 Est GFR (Non-Af Amer) > 60 Glucose 103 Calcium 8.5 Magnesium 2.0 Total Bilirubin 0.4 AST 11 L ALT 18 L Alkaline Phosphatase 90 Total Protein 4.6 L Albumin 2.5 L Triglycerides Impressions: Head CT 10/01/18 04:01 IMPRESSION: No evidence of acute intracranial abnormality. No definitive enhancing intracranial lesions identified. Partially visualized neck mass centered around the right parotid gland. Please see same-day neck CT for detailed description. EVIDENCE OF ACUTE STROKE: NO. Soft Tissue Neck CT 10/01/18 04:01 IMPRESSION: Disease progression with invasion into the tongue base crossing the midline. Chest X-Ray 10/02/18 06:00 IMPRESSION: NO ACUTE RADIOGRAPHIC FINDING IN THE CHEST. Assessment & Plan - Diagnosis (1) Acute encephalopathy Is this a current diagnosis for this admission?: Yes Plan: Likely multifactorial from possible seizure and presumed brain mets. Discussed in length with oncology. There is definite concern for brain mets given his advanced head/neck CA. Patient has been made DNR after oncology discussed with DPOA. She does not want to proceed with hospice yet at this time and prefers that we try to wean him off the sedation first to reassess his mental function. Plan will ultimately be to transition him to hospice. 10/02: He started becoming very agitated and combative later. Ordered Haldol prn. Will start him on seroquel and see if it helps with his agitation. (2) Neck malignant neoplasm Is this a current diagnosis for this admission?: Yes Plan: As per number 1. (3) Seizure Is this a current diagnosis for this admission?: Yes Plan: Possible seizure like activity in the ER. Possible brain mets. Continue IV Keppra. - Time Time Spent with patient: 25-34 minutes
[2018-10-02] MEDS: QUETIAPINE FUMARATE 25 MG TABLET PO SCH (21:43)
[2018-10-03] MEDS: AMPICILLIN SODIUM/SULBACTAM NA 3 GM in NORMAL SALINE 100 ML IV SCH ×3 (01:25→17:00)
[2018-10-03] MEDS: PROPOFOL 1,000 MG/100 ML INFUS..BTL IV PRN (01:29)
[2018-10-03 04:31] LABS: ABSOLUTE BASOPHILS # (AUTO) 0.1 10^3/uL (0.0-0.2); ABSOLUTE EOSINOPHILS # (AUTO) 0.2 10^3/uL (0.0-0.6); ABSOLUTE LYMPHOCYTES (AUTO) 0.8 10^3/uL (0.5-4.7); ABSOLUTE MONOCYTES (AUTO) 0.6 10^3/uL (0.1-1.4); ABSOLUTE NEUT (AUTO) 6.7 10^3/uL (1.7-8.2); BASOPHILS % (AUTO) 1.2 % (0-2); EOSINOPHILS % (AUTO) 2.1 % (0-6); HEMATOCRIT 27.9 % (37.9-51.0); HEMOGLOBIN 9.8 g/dL (13.5-17.0); LYMPHOCYTES % (AUTO) 9.8 % (13-45); MEAN CORPUSCULAR HEMOGLOBIN 31.6 pg (27.0-33.4); MEAN CORPUSCULAR VOLUME 90 fl (80-97); MONOCYTES % (AUTO) 6.9 % (3-13); PLATELET COUNT 418 10^3/uL (150-450); RED BLOOD COUNT 3.09 10^6/uL (4.35-5.55); RED CELL DISTRIBUTION WIDTH 13.9 % (11.5-14.0); TOTAL CELLS COUNTED % (AUTO) 100 %; WHITE BLOOD COUNT 8.3 10^3/uL (4.0-10.5)
[2018-10-03 04:47] LABS: ALANINE AMINOTRANSFERASE 20 U/L (21-72); ALBUMIN 3.3 g/dL (3.5-5.0); ALKALINE PHOSPHATASE 111 U/L (38-126); ANION GAP 11 (5-19); ASPARTATE AMINO TRANSFERASE 23 U/L (17-59); BILIRUBIN,DIRECT 0.3 mg/dL (0.0-0.4); BILIRUBIN,TOTAL 0.4 mg/dL (0.2-1.3); BLOOD UREA NITROGEN 12 mg/dL (7-20); CALCIUM 8.6 mg/dL (8.4-10.2); CARBON DIOXIDE 27 mmol/L (22-30); CHLORIDE 95 mmol/L (98-107); GLUCOSE 94 mg/dL (75-110); TOTAL PROTEIN 6.2 g/dL (6.3-8.2)
[2018-10-03 04:57] LABS: POTASSIUM 3.5 mmol/L (3.6-5.0)
[2018-10-03] MEDS: NORMAL SALINE 1000 ML 1,000 ML IV PRN (08:14)
--- NOTE | 2018-10-03 08:44 | RADIOLOGY REPORT (SQ) ---
EXAM DESCRIPTION: CHEST SINGLE VIEW COMPLETED DATE/TIME: 10/03/2018 6:04 am REASON FOR STUDY: copd COMPARISON: Chest films 05/14/2018, 10/01/2018, 10/02/2018 CT chest 09/05/2018 EXAM PARAMETERS: NUMBER OF VIEWS: One view. TECHNIQUE: Single frontal radiographic view of the chest acquired. RADIATION DOSE: NA LIMITATIONS: None. FINDINGS: LUNGS AND PLEURA: No dense consolidation worrisome for pneumonia. Scattered small stable pulmonary nodules. No pleural effusion or pneumothorax. MEDIASTINUM AND HILAR STRUCTURES: No masses. Contour normal. HEART AND VASCULAR STRUCTURES: Heart normal in size. Normal vasculature. BONES: No acute findings. HARDWARE: Tracheostomy tube tip in the upper trachea. Left-sided permanent central line tip superior vena cava OTHER: No other significant finding. IMPRESSION: NO ACUTE RADIOGRAPHIC FINDING IN THE CHEST. TECHNICAL DOCUMENTATION: JOB ID: [id number] [employer]- All Rights Reserved Reading location - IP/workstation name: [email or web address]
--- NOTE | 2018-10-03 09:08 | PDOC PROGRESS REPORT ---
Subjective Progress Note for:: 10/03/18 Subjective:: Patient is now on oxygen only. No further vent support. Nurses report that he has remained quite combative and has been in soft wrist restraints. He is trying very hard to communicate with me today. He is able to tell me that he is not in any pain. He asks where he is and what time it is. He is a little hungry, but does not wish to be fed per PEG tube. Reason For Visit: ACUTE ENCEPHALOPATHY, ACUTE RESPIRATORY FAILURE Physical Exam Vital Signs: Temp Pulse Resp BP Pulse Ox 98.2 F 66 18 175/84 H 100 10/03/18 08:00 10/03/18 08:00 10/03/18 08:00 10/03/18 08:00 10/03/18 08:00 Intake & Output 10/02/18 10/03/18 10/04/18 06:59 06:59 06:59 Intake Total 641 1578 147 Output Total [address] [facility] -1444 -3412 -3 Weight 71.2 kg 67.5 kg General appearance: PRESENT: thin Head exam: PRESENT: other - Tumor remains covered without bleeding. Eye exam: PRESENT: EOMI Mouth exam: PRESENT: dry mucosa Respiratory exam: PRESENT: unlabored Extremities exam: ABSENT: pedal edema Neurological exam: PRESENT: alert, awake Psychiatric exam: PRESENT: agitated, anxious, appropriate affect Focused psych exam: PRESENT: restlessness Skin exam: PRESENT: normal color Results Laboratory Results: 10/03/18 04:22 10/03/18 04:22 10/03/18 10/03/18 04:22 04:22 WBC 8.3 RBC 3.09 L Hgb 9.8 L Hct 27.9 L MCV 90 MCH 31.6 MCHC 35.0 RDW 13.9 Plt Count 418 Seg Neutrophils % 80.0 H Lymphocytes % 9.8 L Monocytes % 6.9 Eosinophils % 2.1 Basophils % 1.2 Absolute Neutrophils 6.7 Absolute Lymphocytes 0.8 Absolute Monocytes 0.6 Absolute Eosinophils 0.2 Absolute Basophils 0.1 Sodium 133.0 L Potassium 3.5 L D Chloride 95 L Carbon Dioxide 27 Anion Gap 11 BUN 12 Creatinine 0.55 Est GFR ( Amer) > 60 Est GFR (Non-Af Amer) > 60 Glucose 94 Calcium 8.6 Magnesium 1.6 Total Bilirubin 0.4 AST 23 ALT 20 L Alkaline Phosphatase 111 Total Protein 6.2 L Albumin 3.3 L Impressions: Head CT 10/01/18 04:01 IMPRESSION: No evidence of acute intracranial abnormality. No definitive enhancing intracranial lesions identified. Partially visualized neck mass centered around the right parotid gland. Please see same-day neck CT for detailed description. EVIDENCE OF ACUTE STROKE: NO. Soft Tissue Neck CT 10/01/18 04:01 IMPRESSION: Disease progression with invasion into the tongue base crossing the midline. Chest X-Ray 10/03/18 06:00 IMPRESSION: NO ACUTE RADIOGRAPHIC FINDING IN THE CHEST. Assessment & Plan - Diagnosis (1) Neck malignant neoplasm Is this a current diagnosis for this admission?: Yes Plan: Recently started on chemotherapy, but this caused further bleeding. No further treatment is recommended. He has metastatic disease to the lung and possibly to the brain as well. (2) Acute hemorrhage Is this a current diagnosis for this admission?: Yes Plan: Due to the location of the tumor, further bleeding is expected and may be quite drastic when this happens. I have explained to patient as well as to Pita (his significant other) and Yasmine (his daughter) that there is no surgery or other measures at this point that I believe will help this overall situation. I recommend Hospice services at home, as I do not know when another bleed will occur. (3) Altered mental status, unspecified Qualifiers: Altered mental status type: unspecified Qualified Code(s): R41.82 - Altered mental status, unspecified Is this a current diagnosis for this admission?: Yes Plan: Possible seizure activity. He was started on Keppra and seems to have responded well with this. I would continue this medication. - Plan Summary Plan Summary: He will need his Trach changed today so that he may again speak and eat. I am hopeful this can be done RAMON and then he will be able to meet with Hospice and make further decisions as to plan of care.
[2018-10-03] MEDS: LEVETIRACETAM 500 MG/NACL-ISO 500 MG/100 ML RTUPB IV SCH ×2 (09:26→22:24)
[2018-10-03] MEDS: PANTOPRAZOLE SODIUM 40 MG VIAL IV SCH (09:27)
--- NOTE | 2018-10-03 10:19 | PDOC PROGRESS REPORT ---
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 He was getting palliative treatment and did get Erbitux yesterday. Patient reportedly started becoming more confused last night calling her girlfriend's name the whole time. He was noted to be confused and was combative in the ER. Per ER physician, 4 mg of Ativan was not enough to control his agitation. He also developed significant bleeding from his neck mass in the ER. Decision was made to sedate him and connect him to the ventilator due to extreme agitation. There was questionable seizure-like activity in the ER as well hence he was also given IV Keppra. 10/02: Patient was weaned off propofol. He was switched to T piece by pulmonology. He is mouthing and is trying to communicate. He started becoming very agitated and combative later. No seizure-like activity. 10/03: No acute event overnight. Patient is more calm and pacified with Seroquel. He has not required Haldol overnight. No agitation. Off propofol. This morning, he is mouthing and trying to communicate. Reason For Visit: ACUTE ENCEPHALOPATHY, ACUTE RESPIRATORY FAILURE Physical Exam Vital Signs: Temp Pulse Resp BP Pulse Ox 98.2 F 66 18 175/84 H 100 10/03/18 08:00 10/03/18 08:00 10/03/18 08:00 10/03/18 08:00 10/03/18 08:00 Intake & Output 10/02/18 10/03/18 10/04/18 06:59 06:59 06:59 Intake Total 641 1678 147 Output Total 4313 2900 150 Balance -1444 -3312 -3 Weight 156 lb 15.506 oz 148 lb 12.992 oz General appearance: PRESENT: no acute distress, well-developed, well-nourished Head exam: PRESENT: atraumatic, normocephalic Eye exam: PRESENT: conjunctiva pink, EOMI, PERRLA. ABSENT: scleral icterus Ear exam: PRESENT: normal external ear exam Mouth exam: PRESENT: moist, tongue midline Neck exam: PRESENT: other - right sided neck mass. ABSENT: carotid bruit Respiratory exam: PRESENT: clear to auscultation kleber. ABSENT: rales, rhonchi, wheezes Cardiovascular exam: PRESENT: RRR. ABSENT: diastolic murmur, rubs, systolic murmur Pulses: PRESENT: normal dorsalis pedis pul GI/Abdominal exam: PRESENT: normal bowel sounds, soft. ABSENT: distended, guarding, mass, organolmegaly, rebound, tenderness Rectal exam: PRESENT: deferred Neurological exam: PRESENT: alert, awake Results Laboratory Results: 10/03/18 04:22 10/03/18 04:22 10/03/18 10/03/18 04:22 04:22 WBC 8.3 RBC 3.09 L Hgb 9.8 L Hct 27.9 L MCV 90 MCH 31.6 MCHC 35.0 RDW 13.9 Plt Count 418 Seg Neutrophils % 80.0 H Lymphocytes % 9.8 L Monocytes % 6.9 Eosinophils % 2.1 Basophils % 1.2 Absolute Neutrophils 6.7 Absolute Lymphocytes 0.8 Absolute Monocytes 0.6 Absolute Eosinophils 0.2 Absolute Basophils 0.1 Sodium 133.0 L Potassium 3.5 L D Chloride 95 L Carbon Dioxide 27 Anion Gap 11 BUN 12 Creatinine 0.55 Est GFR ( Amer) > 60 Est GFR (Non-Af Amer) > 60 Glucose 94 Calcium 8.6 Magnesium 1.6 Total Bilirubin 0.4 AST 23 ALT 20 L Alkaline Phosphatase 111 Total Protein 6.2 L Albumin 3.3 L Impressions: Head CT 10/01/18 04:01 IMPRESSION: No evidence of acute intracranial abnormality. No definitive enhancing intracranial lesions identified. Partially visualized neck mass centered around the right parotid gland. Please see same-day neck CT for detailed description. EVIDENCE OF ACUTE STROKE: NO. Soft Tissue Neck CT 10/01/18 04:01 IMPRESSION: Disease progression with invasion into the tongue base crossing the midline. Chest X-Ray 10/03/18 06:00 IMPRESSION: NO ACUTE RADIOGRAPHIC FINDING IN THE CHEST. Assessment & Plan - Diagnosis (1) Acute encephalopathy Is this a current diagnosis for this admission?: Yes Plan: Likely multifactorial from possible breakthrough seizure and presumed brain mets. Discussed in length with oncology. There is definite concern for brain mets given his advanced head/neck CA. Patient has been made DNR after oncology discussed with DPSAMREEN. She does not want to proceed with hospice yet at this time and prefers that we try to wean him off the sedation first to reassess his mental function. Plan will ultimately be to transition him to hospice. 10/02: He started becoming very agitated and combative later. Ordered Haldol prn. Will start him on seroquel and see if it helps with his agitation. 10/03: Patient has responded well to Seroquel. No recurrence of agitation and he did not require Haldol overnight. (2) Neck malignant neoplasm Is this a current diagnosis for this admission?: Yes Plan: As per number 1. Plan for pulm to switch his trach tubing so he can try resuming eating/drinking. He will then be transitioned to hospice. (3) Seizure Is this a current diagnosis for this admission?: Yes Plan: Possible seizure like activity in the ER. Possible brain mets. Continue IV Keppra. - Time Time Spent with patient: 25-34 minutes
[2018-10-03] MEDS: HALOPERIDOL LACTATE INJ 5 MG/1 ML VIAL IV PRN ×2 (11:48→22:19)
[2018-10-03] MEDS ORDERED: HYDRALAZINE HCL INJ/PF 20 MG/1 ML SDV ONE (13:50)
[2018-10-03] MEDS ORDERED: HYDRALAZINE HCL INJ/PF 20 MG/1 ML SDV IV PRN (14:05)
[2018-10-03] MEDS ORDERED: LABETALOL HCL INJ 20 MG/4 ML DISP.SYRIN IV PRN (14:45)
[2018-10-03] MEDS: LOSARTAN POTASSIUM 50 MG TABLET PO SCH (15:17)
[2018-10-03] MEDS ORDERED: HYDRALAZINE HCL INJ/PF 20 MG/1 ML SDV IV ONE (17:15)
[2018-10-03] MEDS ORDERED: AMLODIPINE BESYLATE 10 MG TABLET PEG ONE (17:15)
[2018-10-03] MEDS ORDERED: ENALAPRILAT DIHYDRATE INJ/PF 1.25 MG/1 ML SDV IV ONE (20:00)
[2018-10-03] MEDS: QUETIAPINE FUMARATE 25 MG TABLET PO SCH (22:19)
[2018-10-03] MEDS ORDERED: LEVETIRACETAM 500 MG/NACL-ISO 500 MG/100 ML RTUPB IV ONE (22:20)
[2018-10-04] MEDS: AMPICILLIN SODIUM/SULBACTAM NA 3 GM in NORMAL SALINE 100 ML IV SCH ×2 (01:11→10:22)
[2018-10-04] MEDS: NORMAL SALINE 1000 ML 1,000 ML IV PRN (05:41)
[2018-10-04 06:32] LABS: ABSOLUTE BASOPHILS # (AUTO) 0.1 10^3/uL (0.0-0.2); ABSOLUTE EOSINOPHILS # (AUTO) 0.1 10^3/uL (0.0-0.6); ABSOLUTE LYMPHOCYTES (AUTO) 0.5 10^3/uL (0.5-4.7); ABSOLUTE MONOCYTES (AUTO) 0.5 10^3/uL (0.1-1.4); ABSOLUTE NEUT (AUTO) 6.8 10^3/uL (1.7-8.2); BASOPHILS % (AUTO) 0.7 % (0-2); EOSINOPHILS % (AUTO) 1.4 % (0-6); HEMATOCRIT 27.8 % (37.9-51.0); HEMOGLOBIN 9.9 g/dL (13.5-17.0); LYMPHOCYTES % (AUTO) 6.4 % (13-45); MEAN CORPUSCULAR HEMOGLOBIN 31.8 pg (27.0-33.4); MEAN CORPUSCULAR HGB CONC 35.5 g/dL (32.0-36.0); MEAN CORPUSCULAR VOLUME 90 fl (80-97); MONOCYTES % (AUTO) 6.4 % (3-13); PLATELET COUNT 462 10^3/uL (150-450); RED BLOOD COUNT 3.11 10^6/uL (4.35-5.55); RED CELL DISTRIBUTION WIDTH 13.8 % (11.5-14.0); SEGMENTED NEUTROPHILS % (AUTO) 85.1 % (42-78); TOTAL CELLS COUNTED % (AUTO) 100 %
[2018-10-04 06:45] LABS: ANION GAP 10 (5-19); BLOOD UREA NITROGEN 13 mg/dL (7-20); CARBON DIOXIDE 26 mmol/L (22-30); CHLORIDE 94 mmol/L (98-107); GLUCOSE 102 mg/dL (75-110); POTASSIUM 3.9 mmol/L (3.6-5.0); SODIUM 130.2 mmol/L (137-145)
--- NOTE | 2018-10-04 07:37 | PDOC PROGRESS REPORT ---
Subjective Progress Note for:: 10/04/18 Subjective:: Patient is asleep and does not respond to verbal or tactile stimuli. Nurses report that he remains confused but Girlfriend was at bedside earlier today. He is still trying to get out of bed at times. He was given Haldol and seroquel and now has been sleeping. Reason For Visit: ACUTE ENCEPHALOPATHY, ACUTE RESPIRATORY FAILURE Physical Exam Vital Signs: Temp Pulse Resp BP Pulse Ox 97.5 F 71 14 116/62 94 10/04/18 04:37 10/04/18 04:37 10/04/18 04:37 10/04/18 04:37 10/04/18 04:37 Intake & Output 10/03/18 10/04/18 10/05/18 06:59 06:59 06:59 Intake Total 1678 1647 Output Total 4990 1940 Balance -3312 -293 Weight 67.5 kg 68.7 kg General appearance: PRESENT: thin Head exam: PRESENT: normocephalic Neck exam: PRESENT: tracheostomy - Tube has been changed. He was able to talk and eat dinner last night. Respiratory exam: PRESENT: clear to auscultation kleber, unlabored Cardiovascular exam: PRESENT: RRR GI/Abdominal exam: PRESENT: soft. ABSENT: tenderness Extremities exam: ABSENT: pedal edema Neurological exam: ABSENT: awake Psychiatric exam: ABSENT: appropriate affect Focused psych exam: PRESENT: restlessness Results Laboratory Results: 10/04/18 05:44 10/04/18 05:44 10/04/18 10/04/18 05:44 05:44 WBC 8.0 RBC 3.11 L Hgb 9.9 L Hct 27.8 L MCV 90 MCH 31.8 MCHC 35.5 RDW 13.8 Plt Count 462 H Seg Neutrophils % 85.1 H Lymphocytes % 6.4 L Monocytes % 6.4 Eosinophils % 1.4 Basophils % 0.7 Absolute Neutrophils 6.8 Absolute Lymphocytes 0.5 Absolute Monocytes 0.5 Absolute Eosinophils 0.1 Absolute Basophils 0.1 Sodium 130.2 L Potassium 3.9 Chloride 94 L Carbon Dioxide 26 Anion Gap 10 BUN 13 Creatinine 0.56 Est GFR ( Amer) > 60 Est GFR (Non-Af Amer) > 60 Glucose 102 Calcium 9.0 Magnesium 1.6 Impressions: Head CT 10/01/18 04:01 IMPRESSION: No evidence of acute intracranial abnormality. No definitive enhancing intracranial lesions identified. Partially visualized neck mass centered around the right parotid gland. Please see same-day neck CT for detailed description. EVIDENCE OF ACUTE STROKE: NO. Soft Tissue Neck CT 10/01/18 04:01 IMPRESSION: Disease progression with invasion into the tongue base crossing the midline. Assessment & Plan - Diagnosis (1) Neck malignant neoplasm Is this a current diagnosis for this admission?: Yes Plan: At high risk for further bleeding. No further aggressive treatment is planned. (2) Acute hemorrhage Is this a current diagnosis for this admission?: Yes Plan: I have explained to the girlfriend and to his daughter by phone that he will most likely have another acute bleed within the next few weeks. I do not recommend further blood transfusions. There is no other treatment recommended at this time that is felt to help the underlying cancer and prevent bleeding. (3) Altered mental status, unspecified Qualifiers: Altered mental status type: unspecified Qualified Code(s): R41.82 - Altered mental status, unspecified Is this a current diagnosis for this admission?: Yes Plan: Still unclear how clear he will be and how much he will be able to help make decisions. Girlfriend suffers from mental difficulties that she is also unable to make any decisions. Patient's daughter is on her way today from [place] to help with his care and overall planning. He continues to be a safety jae due to the seizures and mental status. - Plan Summary Plan Summary: Please call me if needed. Patientis excellent candidate for Hospice
--- NOTE | 2018-10-04 08:16 | RADIOLOGY REPORT (SQ) ---
EXAM DESCRIPTION: CHEST SINGLE VIEW COMPLETED DATE/TIME: 10/04/2018 7:33 am REASON FOR STUDY: RESP FAILURE COMPARISON: 10/03/2018 EXAM PARAMETERS: NUMBER OF VIEWS: One view. TECHNIQUE: Single frontal radiographic view of the chest acquired. RADIATION DOSE: NA LIMITATIONS: None. FINDINGS: LUNGS AND PLEURA: No opacities, masses or pneumothorax. No pleural effusion. MEDIASTINUM AND HILAR STRUCTURES: No masses. Contour normal. HEART AND VASCULAR STRUCTURES: Heart normal in size. Normal vasculature. BONES: No acute findings. HARDWARE: Tracheostomy tube. Venous access catheter. OTHER: No other significant finding. IMPRESSION: NO ACUTE RADIOGRAPHIC FINDING IN THE CHEST. TECHNICAL DOCUMENTATION: JOB ID: [id number] [employer]- All Rights Reserved Reading location - IP/workstation name: [email or web address]
[2018-10-04] MEDS: LEVETIRACETAM 500 MG/NACL-ISO 500 MG/100 ML RTUPB IV SCH (10:22)
[2018-10-04] MEDS: LOSARTAN POTASSIUM 50 MG TABLET PO SCH (10:23)
--- NOTE | 2018-10-04 13:32 | PDOC PROGRESS REPORT ---
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 He was getting palliative treatment and did get Erbitux yesterday. Patient reportedly started becoming more confused last night calling her girlfriend's name the whole time. He was noted to be confused and was combative in the ER. Per ER physician, 4 mg of Ativan was not enough to control his agitation. He also developed significant bleeding from his neck mass in the ER. Decision was made to sedate him and connect him to the ventilator due to extreme agitation. There was questionable seizure-like activity in the ER as well hence he was also given IV Keppra. 10/02: Patient was weaned off propofol. He was switched to T piece by pulmonology. He is mouthing and is trying to communicate. He started becoming very agitated and combative later. No seizure-like activity. 10/03: Patient is more calm and pacified with Seroquel. He has not required Haldol overnight. No agitation. Off propofol. This morning, he is mouthing and trying to communicate. 10/04: No acute event overnight. His tracht ube has been changed by ENT last night. Patient now able to eat and talk. He says he prefers to go for home hospice rather than inpatient. His daughter is driving from [place] today to discuss final disposition. Reason For Visit: ACUTE ENCEPHALOPATHY, ACUTE RESPIRATORY FAILURE Physical Exam Vital Signs: Temp Pulse Resp BP Pulse Ox 97.7 F 69 20 118/61 98 10/04/18 12:29 10/04/18 12:29 10/04/18 12:29 10/04/18 12:29 10/04/18 12:29 Intake & Output 10/03/18 10/04/18 10/05/18 06:59 06:59 06:59 Intake Total 1678 1647 218 Output Total 1329 9200 275 Balance -3312 -293 -57 Weight 148 lb 12.992 oz 151 lb 7.321 oz General appearance: PRESENT: no acute distress, well-developed, well-nourished Head exam: PRESENT: atraumatic, normocephalic Eye exam: PRESENT: conjunctiva pink, EOMI, PERRLA. ABSENT: scleral icterus Ear exam: PRESENT: normal external ear exam Mouth exam: PRESENT: moist, tongue midline Neck exam: PRESENT: tracheostomy, other - right sided neck mass Respiratory exam: PRESENT: clear to auscultation kleber. ABSENT: rales, rhonchi, wheezes Cardiovascular exam: PRESENT: RRR. ABSENT: diastolic murmur, rubs, systolic murmur Pulses: PRESENT: normal dorsalis pedis pul GI/Abdominal exam: PRESENT: normal bowel sounds, soft. ABSENT: distended, guarding, mass, organolmegaly, rebound, tenderness Rectal exam: PRESENT: deferred Neurological exam: PRESENT: alert, awake, oriented to person, oriented to place, oriented to time, oriented to situation, CN II-XII grossly intact. ABSENT: motor sensory deficit Results Laboratory Results: 10/04/18 05:44 10/04/18 05:44 10/04/18 10/04/18 05:44 05:44 WBC 8.0 RBC 3.11 L Hgb 9.9 L Hct 27.8 L MCV 90 MCH 31.8 MCHC 35.5 RDW 13.8 Plt Count 462 H Seg Neutrophils % 85.1 H Lymphocytes % 6.4 L Monocytes % 6.4 Eosinophils % 1.4 Basophils % 0.7 Absolute Neutrophils 6.8 Absolute Lymphocytes 0.5 Absolute Monocytes 0.5 Absolute Eosinophils 0.1 Absolute Basophils 0.1 Sodium 130.2 L Potassium 3.9 Chloride 94 L Carbon Dioxide 26 Anion Gap 10 BUN 13 Creatinine 0.56 Est GFR ( Amer) > 60 Est GFR (Non-Af Amer) > 60 Glucose 102 Calcium 9.0 Magnesium 1.6 10/01/18 14:35 Tracheal Aspirate Gram Stain - Final 10/01/18 14:35 Tracheal Aspirate Sputum Culture - Final Pseudomonas Aeruginosa Klebsiella Pneumoniae Haemophilus Influenzae Greatly Reduced Normal Carolyn Impressions: Head CT 10/01/18 04:01 IMPRESSION: No evidence of acute intracranial abnormality. No definitive enhancing intracranial lesions identified. Partially visualized neck mass centered around the right parotid gland. Please see same-day neck CT for detailed description. EVIDENCE OF ACUTE STROKE: NO. Soft Tissue Neck CT 10/01/18 04:01 IMPRESSION: Disease progression with invasion into the tongue base crossing the midline. Chest X-Ray 10/04/18 06:00 IMPRESSION: NO ACUTE RADIOGRAPHIC FINDING IN THE CHEST. Assessment & Plan - Diagnosis (1) Acute encephalopathy Is this a current diagnosis for this admission?: Yes Plan: Likely multifactorial from possible breakthrough seizure and presumed brain mets. Discussed in length with oncology. There is definite concern for brain mets given his advanced head/neck CA. Patient has been made DNR after oncology discussed with DPOA. She does not want to proceed with hospice yet at this time and prefers that we try to wean him off the sedation first to reassess his mental function. Plan will ultimately be to transition him to hospice. 10/02: He started becoming very agitated and combative later. Ordered Haldol prn. Will start him on seroquel and see if it helps with his agitation. 10/03: Patient has responded well to Seroquel. No recurrence of agitation and he did not require Haldol overnight. 10/04: He is back to baseline. (2) Neck malignant neoplasm Is this a current diagnosis for this admission?: Yes Plan: As per number 1. 10/03: Plan for pulm or ENT to switch his trach tubing so he can try resuming eating/drinking. He will then be transitioned to hospice. (3) Seizure Is this a current diagnosis for this admission?: Yes Plan: Possible seizure like activity in the ER. Possible brain mets. Continue IV Keppra. 10/04: Switch IV Keppra to PO. (4) Tracheobronchitis Is this a current diagnosis for this admission?: Yes Plan: Noted tracheal aspirate culture results. Switch Unasyn to Levaquin PO. - Time Time Spent with patient: 25-34 minutes
--- NOTE | 2018-10-04 18:58 | PROGRESS NOTE E ---
Progress Note NAME: GRETA BELTRÁN : 1955 AGE: 63Y DATE: 10/03/2018 ROOM: 323 HISTORY: I was asked to evaluate the patient to change his tracheostomy tube. The patient was evaluated on early Saturday morning for bleeding from his right neck wound. At the time of the evaluation we were asked to change his tracheostomy from a fenestrated trach to a cuff trach, so that the patient can be placed on a ventilator. This was successfully performed. The patient has since been weaned from the ventilator and the ICU service wanted to tracheostomy changed to a fenestrated trach so that the patient can vocalize and consume p.o. food. The patient does not have any respiratory problems at this time and agrees to the tracheostomy change. PROCEDURE PERFORMED: A cuffed #6 Shiley tracheostomy tube was then placed. The cuff is released so the air is suctioned from the cuffed tube prior to removing the tracheostomy tube, the tracheostomy tube that is going to replace the cuffed tube is prepared and ready to go. The tracheostomy tube is successfully removed. Secretions are suctioned using a Yankauer suction. The new fenestrated 6 Shiley tracheostomy tube is placed. Trocars removed inner cannula is placed. The patient is breathing through the new tracheostomy tube without any difficulty. The tracheostomy tube is then secured with Velcro straps. The patient tolerated the procedure well without any complications. ASSESSMENT: 1. HEAD AND NECK CANCER OF UNKNOWN PRIMARY. 2. TRACHEOSTOMY DEPENDENCY. PLAN: It is recommended that the inner cannula be cleaned and changed daily and the tracheostomy tube be removed and cleaned weekly. This was discussed with the ICU nursing staff. DICTATING PHYSICIAN: ELANA SEE M.D. [id number] PHY#: [id number] ID: [id number] JOB#: [id number] ACCT: [id number] cc: >
[2018-10-04] MEDS: QUETIAPINE FUMARATE 25 MG TABLET PO SCH (23:00)
[2018-10-04] MEDS: LEVETIRACETAM 500 MG TABLET PO SCH (23:00)
[2018-10-05] MEDS: HALOPERIDOL LACTATE INJ 5 MG/1 ML VIAL IV PRN ×2 (00:20→21:35)
[2018-10-05] MEDS: NORMAL SALINE 1000 ML 1,000 ML IV PRN ×2 (00:26→21:39)
[2018-10-05] MEDS: LEVETIRACETAM 500 MG TABLET PO SCH ×2 (09:41→21:33)
[2018-10-05] MEDS: LOSARTAN POTASSIUM 50 MG TABLET PO SCH (09:41)
[2018-10-05] MEDS: LEVOFLOXACIN 750 MG TABLET PO SCH (09:41)
[2018-10-05] MEDS ORDERED: ACETAMINOPHEN 325 MG TABLET PO PRN (10:57)
--- NOTE | 2018-10-05 14:23 | PDOC PROGRESS REPORT ---
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 He was getting palliative treatment and did get Erbitux yesterday. Patient reportedly started becoming more confused last night calling her girlfriend's name the whole time. He was noted to be confused and was combative in the ER. Per ER physician, 4 mg of Ativan was not enough to control his agitation. He also developed significant bleeding from his neck mass in the ER. Decision was made to sedate him and connect him to the ventilator due to extreme agitation. There was questionable seizure-like activity in the ER as well hence he was also given IV Keppra. 10/02: Patient was weaned off propofol. He was switched to T piece by pulmonology. He is mouthing and is trying to communicate. He started becoming very agitated and combative later. No seizure-like activity. 10/03: Patient is more calm and pacified with Seroquel. He has not required Haldol overnight. No agitation. Off propofol. This morning, he is mouthing and trying to communicate. 10/04: His trach tube has been changed by ENT last night. Patient now able to eat and talk. He says he prefers to go for home hospice rather than inpatient. His daughter is driving from [place] today to discuss final disposition. 10/05: No acute event overnight. He is tolerating oral intake well. No seizure like activity. Patient's girlfriend, daughter and mother are on the bedside. Patient and family are decided on going for hospice. Patient prefers home hospice. He lives with his girlfriend. Daughter who has driven down here from [facility] initially preferred for him to go to inpatient hospice. After a lengthy discussion with everyone including patient's primary seafood process worker/girlfriend (who he says his preferred surrogate decision maker if he is not able to make decisions in the future), patient, girlfriend and daughter are now amenable to proceeding with home hospice and later transition to inpatient hospice if patient's girlfriend/seafood process worker becomes overwhelmed with taking care of him later. Reason For Visit: ACUTE ENCEPHALOPATHY, ACUTE RESPIRATORY FAILURE Physical Exam Vital Signs: Temp Pulse Resp BP Pulse Ox 97.9 F 80 16 133/75 H 100 10/05/18 11:02 10/05/18 11:02 10/05/18 11:02 10/05/18 11:02 10/05/18 13:44 Intake & Output 10/04/18 10/05/18 10/06/18 06:59 06:59 06:59 Intake Total 1647 1794 473 Output Total 9940 4996 275 Balance -293 -1661 198 Weight 151 lb 7.321 oz 153 lb 14.122 oz General appearance: PRESENT: no acute distress, well-developed, well-nourished Head exam: PRESENT: atraumatic, normocephalic Eye exam: PRESENT: conjunctiva pink, EOMI, PERRLA. ABSENT: scleral icterus Ear exam: PRESENT: normal external ear exam Mouth exam: PRESENT: moist, tongue midline Neck exam: PRESENT: other - right sided neck mass Respiratory exam: PRESENT: clear to auscultation kleber. ABSENT: rales, rhonchi, wheezes Cardiovascular exam: PRESENT: RRR. ABSENT: diastolic murmur, rubs, systolic murmur Pulses: PRESENT: normal dorsalis pedis pul GI/Abdominal exam: PRESENT: normal bowel sounds, soft. ABSENT: distended, guarding, mass, organolmegaly, rebound, tenderness Rectal exam: PRESENT: deferred Neurological exam: PRESENT: alert, awake, oriented to person, oriented to place, oriented to time, oriented to situation, CN II-XII grossly intact. ABSENT: motor sensory deficit Results Laboratory Results: 10/04/18 05:44 10/04/18 05:44 10/01/18 14:35 Tracheal Aspirate Gram Stain - Final 10/01/18 14:35 Tracheal Aspirate Sputum Culture - Final Pseudomonas Aeruginosa Klebsiella Pneumoniae Haemophilus Influenzae Greatly Reduced Normal Carolyn Impressions: Head CT 10/01/18 04:01 IMPRESSION: No evidence of acute intracranial abnormality. No definitive enhancing intracranial lesions identified. Partially visualized neck mass centered around the right parotid gland. Please see same-day neck CT for detailed description. EVIDENCE OF ACUTE STROKE: NO. Soft Tissue Neck CT 10/01/18 04:01 IMPRESSION: Disease progression with invasion into the tongue base crossing the midline. Chest X-Ray 10/04/18 06:00 IMPRESSION: NO ACUTE RADIOGRAPHIC FINDING IN THE CHEST. Assessment & Plan - Diagnosis (1) Acute encephalopathy Is this a current diagnosis for this admission?: Yes Plan: Likely multifactorial from possible breakthrough seizure and presumed brain mets. Discussed in length with oncology. There is definite concern for brain mets given his advanced head/neck CA. Patient has been made DNR after oncology discussed with DPOA. She does not want to proceed with hospice yet at this time and prefers that we try to wean him off the sedation first to reassess his mental function. Plan will ultimately be to transition him to hospice. 10/02: He started becoming very agitated and combative later. Ordered Haldol prn. Will start him on seroquel and see if it helps with his agitation. 10/03: Patient has responded well to Seroquel. No recurrence of agitation and he did not require Haldol overnight. 10/04: He is back to baseline. (2) Neck malignant neoplasm Is this a current diagnosis for this admission?: Yes Plan: As per number 1. 10/03: Plan for pulm or ENT to switch his trach tubing so he can try resuming eating/drinking. He will then be transitioned to hospice. 10/05: Patient's girlfriend, daughter and mother are on the bedside. Patient and family are decided on going for hospice. Patient prefers home hospice. He lives with his girlfriend. Daughter who has driven down here from [place] initially preferred for him to go to inpatient hospice. After a lengthy discussion with everyone including patient's primary seafood process worker/girlfriend (who he says his preferred surrogate decision maker if he is not able to make decisions in the future), patient, girlfriend and daughter are now amenable to proceeding with home hospice and later transition to inpatient hospice if patient's girlfriend/seafood process worker becomes overwhelmed with taking care of him later. (3) Seizure Is this a current diagnosis for this admission?: Yes Plan: Possible seizure like activity in the ER. Possible brain mets. Continue IV Keppra. 10/04: Switch IV Keppra to PO. 10/05: Continue PO Keppra. (4) Tracheobronchitis Is this a current diagnosis for this admission?: Yes Plan: Noted tracheal aspirate culture results. Switch Unasyn to Levaquin PO. 10/05: Continue PO Levaquin. - Time Time Spent with patient: 35 or more minutes
[2018-10-05] MEDS: QUETIAPINE FUMARATE 25 MG TABLET PO SCH (21:34)
[2018-10-06 08:53] VITALS: BP 155/71
[2018-10-06] MEDS: LOSARTAN POTASSIUM 50 MG TABLET PO SCH (08:59)
[2018-10-06] MEDS: LEVETIRACETAM 500 MG TABLET PO SCH (08:59)
[2018-10-06] MEDS: LEVOFLOXACIN 750 MG TABLET PO SCH (09:00)
--- NOTE | 2018-10-06 09:55 | PDOC DISCHARGE SUMMARY ---
General - Admit/Disc Date/PCP Admission Date/Primary Care Provider: 10/01/18 07:34 Discharge Date: 10/06/18 - Discharge Diagnosis (1) Acute encephalopathy Is this a current diagnosis for this admission?: Yes (2) Neck malignant neoplasm Is this a current diagnosis for this admission?: Yes (3) Seizure Is this a current diagnosis for this admission?: Yes (4) Tracheobronchitis Is this a current diagnosis for this admission?: Yes - Additional Information Resuscitation Status: Do Not Resuscitate Prescriptions: Levetiracetam [Keppra 500 mg Tablet] 500 mg PO Q12 #60 tablet Levofloxacin [Levaquin 750 mg Tablet] 750 mg PO DAILY 2 Days #2 tablet Losartan Potassium [Cozaar 50 mg Tablet] 100 mg PO DAILY #60 tablet Quetiapine Fumarate [Seroquel 25 mg Tablet] 25 mg PO QHS #30 tablet Home Medications: Tramadol HCl [Ultram 50 mg Tablet] 50 mg PO Q8HP PRN 10/01/18 Levetiracetam [Keppra 500 mg Tablet] 500 mg PO Q12 #60 tablet 10/06/18 Levofloxacin [Levaquin 750 mg Tablet] 750 mg PO DAILY 2 Days #2 tablet 10/06/18 Losartan Potassium [Cozaar 50 mg Tablet] 100 mg PO DAILY #60 tablet 10/06/18 Quetiapine Fumarate [Seroquel 25 mg Tablet] 25 mg PO QHS #30 tablet 10/06/18 History of Present Illness History of Present Illness: GRETA BELTRÁN is a 63 year old male with a PMH of Stage 4, 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 He was getting palliative treatment and did get Erbitux yesterday. Patient reportedly started becoming more confused last night calling her girlfriend's name the whole time. He was noted to be confused and was combative in the ER. Per ER physician, 4 mg of Ativan was not enough to control his agitation. He also developed significant bleeding from his neck mass in the ER. Decision was made to sedate him and connect him to the ventilator due to extreme agitation. There was questionable seizure-like activity in the ER as well hence he was also given IV Keppra. 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 He was getting palliative treatment and did get Erbitux yesterday. Patient reportedly started becoming more confused last night calling her girlfriend's name the whole time. He was noted to be confused and was combative in the ER. Per ER physician, 4 mg of Ativan was not enough to control his agitation. He also developed significant bleeding from his neck mass in the ER. Decision was made to sedate him and connect him to the ventilator due to extreme agitation. There was questionable seizure-like activity in the ER as well hence he was also given IV Keppra. 10/02: Patient was weaned off propofol. He was switched to T piece by pulmonology. He is mouthing and is trying to communicate. He started becoming very agitated and combative later. No seizure-like activity. 10/03: Patient is more calm and pacified with Seroquel. He has not required Haldol overnight. No agitation. Off propofol. This morning, he is mouthing and trying to communicate. 10/04: His trach tube has been changed by ENT last night. Patient now able to eat and talk. He says he prefers to go for home hospice rather than inpatient. His daughter is driving from [place] today to discuss final disposition. 10/05: No acute event overnight. He is tolerating oral intake well. No seizure like activity. Patient's girlfriend, daughter and mother are on the bedside. Patient and family are decided on going for hospice. Patient prefers home h ospice. He lives with his girlfriend. Daughter who has driven down here from [place] initially preferred for him to go to inpatient hospice. After a lengthy discussion with everyone including patient's primary acute coordinator/girlfriend (who he says his preferred surrogate decision maker if he is not able to make decisions in the future), patient, girlfriend and daughter are now amenable to proceeding with home hospice and later transition to inpatient hospice if patient's girlfriend/acute coordinator becomes overwhelmed with taking care of him later. His acute encephalopathy was likely multifactorial from possible breakthrough seizure and presumed brain mets. Discussed in length with oncology. There is definite concern for brain mets given his advanced head/neck CA. He was started on Unasyn for tracheobronchitis. Chest x-ray was negative for pneumonia. Tracheal aspirate culture was polymicrobial (see culture report). Unasyn was switched to Levaquin. He will need 2 more days of Levaquin. Physical Exam Vital Signs: Temp Pulse Resp BP Pulse Ox 98.2 F 76 16 155/71 H 97 10/05/18 23:39 10/06/18 07:56 10/06/18 07:56 10/06/18 07:56 10/06/18 09:31 Intake & Output 10/05/18 10/06/18 10/07/18 06:59 06:59 06:59 Intake Total 2413 7707 Output Total 4072 9445 Balance -1661 -988 Weight 153 lb 14.122 oz 150 lb 12.739 oz General appearance: PRESENT: no acute distress, well-developed, well-nourished Head exam: PRESENT: atraumatic, normocephalic Eye exam: PRESENT: conjunctiva pink, EOMI, PERRLA. ABSENT: scleral icterus Ear exam: PRESENT: normal external ear exam Mouth exam: PRESENT: moist, tongue midline Neck exam: PRESENT: tracheostomy, other - right sided neck mass Respiratory exam: PRESENT: clear to auscultation kleber. ABSENT: rales, rhonchi, wheezes Cardiovascular exam: PRESENT: RRR. ABSENT: diastolic murmur, rubs, systolic murmur Pulses: PRESENT: normal dorsalis pedis pul GI/Abdominal exam: PRESENT: normal bowel sounds, soft. ABSENT: distended, guarding, mass, organolmegaly, rebound, tenderness Rectal exam: PRESENT: deferred Neurological exam: PRESENT: alert, awake, oriented to person, oriented to place, oriented to time, oriented to situation, CN II-XII grossly intact. ABSENT: motor sensory deficit Results Laboratory Results: 10/04/18 05:44 10/04/18 05:44 10/01/18 14:57 G Tube (Peg Tube) Gram Stain - Final 10/01/18 14:57 G Tube (Peg Tube) Wound Culture - Final Staphylococcus Aureus Citrobacter Freundii Pseudomonas Aeruginosa Skin Carolyn 10/01/18 03:00 Blood Blood Culture - Final NO GROWTH IN 5 DAYS 10/01/18 01:35 Blood Blood Culture - Final NO GROWTH IN 5 DAYS Impressions: Head CT 10/01/18 04:01 IMPRESSION: No evidence of acute intracranial abnormality. No definitive enhancing intracranial lesions identified. Partially visualized neck mass centered around the right parotid gland. Please see same-day neck CT for detailed description. EVIDENCE OF ACUTE STROKE: NO. Soft Tissue Neck CT 10/01/18 04:01 IMPRESSION: Disease progression with invasion into the tongue base crossing the midline. Chest X-Ray 10/04/18 06:00 IMPRESSION: NO ACUTE RADIOGRAPHIC FINDING IN THE CHEST. Qualifiers - * PATIENT BEING DISCHARGED WITH ANY OF THE FOLLOWING DIAGNOSIS: No
== END 2018-10-06 12:35 | disposition hospice, home (50) | DRG 147 ==
LOC: ER 01:18 → EH 07:34 → ICU 14:29 → 3W 10-03 17:59
PROVIDERS: ADMIT Internal Medicine; ATTEND Internal Medicine
PROC: 5A1945Z Respiratory Ventilation, 24-96 Consecutive Hours (ICD-10-PCS; principal; 2018-10-01)
PROC: 30233N1 Transfusion of Nonautologous Red Blood Cells into Peripheral Vein, Percutaneous Approach (ICD-10-PCS; 2018-10-01)
PROC: 0B21XFZ Change Tracheostomy Device in Trachea, External Approach (ICD-10-PCS; 2018-10-04)
DX: C76.0 Malignant neoplasm of head, face and neck (principal); J95.01 Hemorrhage from tracheostomy stoma; C78.00 Secondary malignant neoplasm of unspecified lung; G93.40 Encephalopathy, unspecified; C79.31 Secondary malignant neoplasm of brain; Z78.1 Physical restraint status; Z51.5 Encounter for palliative care; Z66 Do not resuscitate; B96.3 Hemophilus influenzae [H. influenzae] as the cause of diseases classified elsewhere; B96.1 Klebsiella pneumoniae [K. pneumoniae] as the cause of diseases classified elsewhere; B96.5 Pseudomonas (aeruginosa) (mallei) (pseudomallei) as the cause of diseases classified elsewhere; R56.9 Unspecified convulsions; J40 Bronchitis, not specified as acute or chronic; R41.82 Altered mental status, unspecified; I10 Essential (primary) hypertension; Y83.3 Surgical operation with formation of external stoma as the cause of abnormal reaction of the patient, or of later complication, without mention of misadventure at the time of the procedure; Z79.899 Other long term (current) drug therapy; Z87.891 Personal history of nicotine dependence; Z93.1 Gastrostomy status
CPT/HCPCS: 36415; 36430; 70450; 70460; 70491; 71045; 80048; 80053; 80307; 82803; 83605; 83735; 84478; 85025; 85610; 85730; 86850; 86900; 86901; 86920; 87040; 87070; 87077; 87186; 87205; 94002; 94003; 94660; 96365; 96367; 96374; 96375; 96376; 96413; 96415; 99291; 99292; J0295; J0360; J1100; J1200; J1630; J1953; J2060; J2250; J2704; J3010; J3490; J7030; J9055; L8504; P9016; S0164